=== PATIENT | female | born 1940 | race Caucasian/White ===

== ENCOUNTER 2020-12-03 10:12 | Outpatient (CLI) | payer MEDICARE, SELFPAY | END 2020-12-03 10:13 | disposition home or self-care (01) | LOC: ANHCOVIDVC 10:12 | PROVIDERS: PCP Family Medicine | DX: Z23 Encounter for immunization (principal) | CPT/HCPCS: 0001A; 91300 ==

== ENCOUNTER 2020-12-24 10:12 | Outpatient (CLI) | payer MEDICARE, SELFPAY | END 2020-12-24 10:13 | disposition home or self-care (01) | LOC: ANHCOVIDVC 10:12 | PROVIDERS: PCP Family Medicine | DX: Z23 Encounter for immunization (principal) | CPT/HCPCS: 0002A; 91300 ==

== ENCOUNTER 2021-05-10 07:58 | Emergency (ER) | payer MEDICARE, SELFPAY ==
--- NOTE | ~2021-05-10 | XR_ITS ---
EXAMINATION: XR hip RT min 2V DATE: 05/10/2021 09:19 INDICATION: Right hip pain. TECHNIQUE: 2 views of right hip were obtained. COMPARISON: Pelvis radiograph 05/21/2006 FINDINGS: Bone alignment is normal. No fracture. Right hip joint space is normal. There is moderate l umbar spondylosis. IMPRESSION: 1. Normal right hip. Reviewed, dictated and finalized at location A. IMPRESSION: 1. Normal right hip.
--- NOTE | ~2021-05-10 | XR_ITS ---
EXAMINATION: XR hip LT 2V w AP pelvis INDICATION: Left hip pain TECHNIQUE: AP view the pelvis and two views of the left hip are obtained. COMPARISON: 05/22/2006 FINDINGS: Bone alignment is normal. There is no fracture. Phleboliths are noted in the pelvis. There is osteitis pubis. Lumbar spondylosis is noted. IMPRESSION: 1. No acute osseous abnormality. Reviewed, dictated and finalized at location B.
[2021-05-10 08:35] VITALS: BP 159/84; PULSE 66; RESP 16; TEMP 36.6; O2SAT 100
[2021-05-10 09:05] VITALS: BP 124/107; PULSE 72; RESP 18; O2SAT 100
--- NOTE | 2021-05-10 09:44 | ED.LOWEXIN ---
HPI - Extremity Injury (Lower) General Chief Complaint: Extremity Injury, Lower Stated Complaint: yellowjacket sting Time Seen by Provider: 05/10/21 09:17 History of Present Illness HPI Narrative: Pain purchased on by a low jacket a few days ago. Pain is been getting progressively worse. She reports she is allergic to yellow jackets of managing her symptoms with Benadryl. She attempted ibuprofen alleviate her pain but has been unsuccessful. She tried to see her primary care doctor yesterday but the clinic was full. Since her pain continues to worsen she came to the ER for evaluation. Pain is constant, sharp, worse with trying to ambulate radiates up and down her leg is predominant in her right hip where she was stung. She denies any fevers, nausea, vomiting, diarrhea, shortness of breath. Reports she initially had swelling but does not appreciate swelling at this time she not noted any significant erythema. Related Data Allergies Allergy/AdvReac Type Severity Reaction Status Date / Time ciprofloxacin Allergy Unknown Unknown Verified 05/10/21 09:05 Sulfa (Sulfonamide Allergy Unknown Unknown Verified 05/10/21 09:05 Antibiotics) Review of Systems Review of Systems: CONSTITUTIONAL: Denies fever, chills, or sweats. EYES: Denies visual changes, redness, or discharge. ENT: Denies rhinorrhea, congestion, sore throat, or otalgia. CARDIOVASCULAR: Denies chest pain, palpitations, or edema. RESPIRATORY: Denies cough or dyspnea. GASTROINTESTINAL: Denies abdominal pain, nausea, vomiting, or diarrhea. GENITOURINARY: Denies dysuria or hematuria. SKIN: Denies rash or itching. MUSCULOSKELETAL: Denies back pain, joint pain, or myalgia. NEUROLOGIC: Denies headache, numbness, dizziness, or weakness. PSYCHIATRIC: Denies anxiety or depression. All systems reviewed & are unremarkable except as noted in HPI and below PMFSH Past Medical History Medical History Chronic low back pain HTN (hypertension) IFG (impaired fasting glucose) Vitamin D deficiency Social History Social History (Updated 01/07/21 @ 10:06 by Blaire Blackburn) Smoking status: Never smoker Alcohol intake: never Substance use: never Gender identity (if verbalized by the patient): Female Exam Narrative: GENERAL: Well-appearing, well-nourished, and in no acute distress. HEAD: Normocephalic, atraumatic. EYES: PERRLA and EOMI. ENT: Nares clear, no rhinorrhea or epistaxis. Mucous membranes moist. NECK: Supple. No masses. No JVD CHEST: Clear to auscultation. No respiratory distress. No wheezes rales or rhonchi HEART: Regular rate and rhythm. No murmur heard. Normal peripheral pulses. ABDOMEN: Soft, nontender, nondistended, normal active bowel sounds. EXTREMITIES: Normal range of motion. No edema. SKIN: Warm, dry. 2 x 2 centimeter area of ecchymosis with small central erythema. Pain with palpation of the hip no appreciable edema or focal areas of fluctuance no open or draining wounds NEURO: No focal deficits. Alert and oriented x3. PSYCH: Normal mood and affect. Course Reevaluation(s) Reevaluation #1: Patient continues report right hip pain. Labs and imaging reviewed with patient recommended a trial of outpatient gabapentin and time symptoms are likely related to recent stenting. Patient reported she was unhappy and would like her problem fixed today. Date: 05/10/21 Time: 10:57 Vital Signs Vital signs: Vital Signs Temperature 36.6 C 05/10/21 08:35 Pulse Rate 66 05/10/21 08:35 Respiratory Rate 16 05/10/21 08:35 Blood Pressure 159/84 H 05/10/21 08:35 Pulse Oximetry 100 05/10/21 08:35 Temperature 36.6 C 05/10/21 08:35 Pulse Rate 75 05/10/21 11:58 Respiratory Rate 12 05/10/21 11:58 Blood Pressure 124/107 H 05/10/21 09:05 Pulse Oximetry 95 05/10/21 11:58 MDM - Extremity Injury (Lower) MDM Narrative Medical decision making narrative: H&P as above, vss, pt looks c
[2021-05-10] MEDS: KETOROLAC 15 MG/ML VIAL (*BKC) IV PUSH (09:57)
[2021-05-10 10:11] LABS: Basophils Percent Auto 0.5 % (0.2-1.2); Eosinophils Absolute Auto 0.2 K/mm3 (0-0.3); Eosinophils Percent Auto 1.7 % (0-4.4); Hematocrit 39.5 % (37.0-47.0); Hemoglobin 12.6 g/dL (12.0-15.0); Immature Granulocyte Absolute 0.03 K/mm3 (0.00-0.031); Immature Granulocyte Percent A 0.3 % (0-0.5); Lymphocytes Absolute Auto 1.46 K/mm3 (0.9-3.2); Lymphocytes Percent Auto 16.9 % (18.3-44.2); Mean Corpuscular HGB Conc 31.9 g/dl (32-36); Mean Corpuscular Hemoglobin 28.7 pg (26-34); Mean Platelet Volume 9.3 fl (7.4-10.4); Monocytes Absolute Auto 0.6 K/mm3 (0.1-0.6); Monocytes Percent Auto 7.3 % (2.6-8.5); Neutrophils Absolute Auto 6.3 K/mm3 (1.3-6.7); Neutrophils Percent Auto 73.3 % (45.5-73.1); Platelet Count Result 228 k/mm3 (150-375); Red Blood Count 4.39 M/mm3 (4.2-5.4); Red Cell Distribution Width 13.5 % (11.5-14.5); White Blood Count 8.6 K/mm3 (4.5-10.0)
[2021-05-10 10:27] LABS: Alanine Aminotransferase 12 U/L (4-35); Albumin Level 4.3 g/dL (3.5-5.1); Alkaline Phosphatase 71 U/L (38-126); Anion Gap 7 mmol/L (8-16); Aspartate Amino Transferase 22 U/L (14-36); Bilirubin,Total 0.7 mg/dL (0.2-1.3); Blood Urea Nitrogen 17 mg/dL (7-17); CRP 0.6 mg/dL (<1.0); Calcium 9.4 mg/dL (8.4-10.2); Carbon Dioxide 27 mmol/L (22-30); Chloride 106 mmol/L (98-107); Estimated CRCL calculation 38 ml/min; Estimated Glomerular Filt Rate 60; Glucose 101 mg/dL (65-110); Potassium 3.9 mmol/L (3.4-5.0); Sodium 140 mmol/L (137-145)
[2021-05-10 10:36] LABS: Erythrocyte Sedimentation Rate 21 mm/hr (0-20)
[2021-05-10 11:58] VITALS: PULSE 75; RESP 12; O2SAT 95
--- NOTE | 2021-05-10 13:20 | PC.NURSE ---
pt. returned, IV removed and dressing applied.
== END 2021-05-10 11:55 | disposition home or self-care (01) ==
PROVIDERS: Emergency Provider Emergency Medicine; PCP Family Medicine
DX: T63.461A Toxic effect of venom of wasps, accidental (unintentional), initial encounter (principal); M25.551 Pain in right hip; I10 Essential (primary) hypertension
CPT/HCPCS: 36415; 73502; 80053; 85025; 85652; 86140; 96374; 99284; J1885

== ENCOUNTER 2021-05-12 08:25 | Inpatient (IN) | payer MEDICARE, SELFPAY ==
[2021-05-12] VITALS (9 sets, daily range): BP systolic 169–195; BP diastolic 66–90; PULSE 62–73; RESP 18–22; TEMP 36.9–37.1; O2SAT 95–100
--- NOTE | ~2021-05-12 | CT_ITS ---
EXAMINATION: CT abdomen pelvis wo con DATE: 05/12/2021 10:41 INDICATION: Back pain and right-sided leg pain TECHNIQUE: Computed tomography (CT) of the abdomen and pelvis was performed without intravenous contr ast. The dose-length product (DLP) was 183.22 mGy-cm. Automated exposure control and iterative recons truction technique were employed. COMPARISON: 05/21/2006 FINDINGS: Minimal dependent atelectasis is present in the visualized lung bases. Cardiomegaly is note d. The liver, spleen, gallbladder, and adrenal glands are normal. There is a chronic and unchanged ar ea of low attenuation in the head of the pancreas, likely fatty infiltration given the interval stabi lity. The kidneys are unremarkable. No stones are identified in the kidneys, ureters, or bladder. The re is no hydronephrosis or hydroureter. There is calcified atherosclerosis of the aorta and many of t he other arteries. No pathologically enlarged abdominal or pelvic lymph nodes are identified. There i s no free intraperitoneal gas or evidence of bowel obstruction. There is severe lumbar spondylosis at L1-2 and mild to moderate spondylosis throughout the remainder of the lumbar spine. There is vertebr oplasty change in a T12 compression fracture. IMPRESSION: 1. No CT correlate for the patient's symptoms. Reviewed, dictated and finalized at location B.
--- NOTE | ~2021-05-12 | CT_ITS ---
EXAMINATION: CT lumbar spine wo con DATE: 05/13/2021 09:41 INDICATION: Back pain. TECHNIQUE: Computed tomography (CT) of the lumbar spine was performed without intravenous contrast. A utomated exposure control and iterative reconstruction technique were employed. The dose-length produ ct was 247.70 mGy-cm. COMPARISON: Lumbar spine MRI 02/15/2018 FINDINGS: There is 3 mm anterolisthesis of L4 on L5. There is 5 degrees levocurvature of lumbar spine . There is a chronic compression fracture of T11 with 1/5 loss of height and changes of vertebroplast y. There is severely decreased disc height at L1-L2, moderately decreased disc height at L2-L3, and m ildly decreased disc height at L3-L4 and L4-L5. The following disc levels are specifically discussed: L1-L2: The disc is bulging. There is moderate bilateral facet joint osteoarthritis. There is mild terrell ateral neural foraminal stenosis. There is mild central canal stenosis. L2-L3: The disc is bulging. There is severe right and mild left facet joint osteoarthritis. There is mild bilateral neural foraminal stenosis. There is mild central canal stenosis. L3-L4: The disc is bulging. There is severe bilateral facet joint osteoarthritis. There is mild bilat eral neural foraminal stenosis. There is mild central canal stenosis. L4-L5: The disc is bulging. There is severe bilateral facet joint osteoarthritis. There is mild bilat eral neural foraminal stenosis. There is mild central canal stenosis. L5-S1: The disc is bulging. There is severe bilateral facet joint osteoarthritis. There is mild bilat eral neural foraminal stenosis. There is mild central canal stenosis. IMPRESSION: 1. Severe lumbar spondylosis, stable from 02/15/2018. Reviewed, dictated and finalized at location A.
--- NOTE | ~2021-05-12 | MR_ITS ---
EXAMINATION: MR lumbar spine wo con DATE: 05/16/2021 08:16 INDICATION: Lumbar disc herniation. Back pain. TECHNIQUE: Magnetic resonance imaging (MRI) of the lumbar spine was performed without intravenous con trast. Sequences included sagittal T2-weighted FSE, sagittal T2-weighted FS FSE, sagittal T1-weighted FSE, and axial T2-weighted FSE. COMPARISON: CT lumbar spine 05/13/2021, lumbar spine MRI 02/15/2018 FINDINGS: There is 3 mm anterolisthesis of L4 on L5. There is a chronic compression fracture of T11 w ith 2/5 loss of height centrally. There is a chronic compression fracture of T12 with 1/5 loss of hei ght and changes of vertebroplasty. There is severely decreased disc height at T10-T11 and L1-L2, mode rately decreased disc height at L2-L3 and L3-L4, and mildly decreased disc height at L4-L5 and L5-S1. The distal spinal cord signal intensity is normal. The conus medullaris is at L2. The following disc levels are specifically discussed: L1-L2: The disc is bulging with superimposed left central extrusion. There is moderate bilateral face t joint osteoarthritis. There is mild right and moderate left neural foraminal stenosis. There is mil d central canal stenosis. L2-L3: The disc is bulging and has an annular fissure. There is severe right and moderate left facet joint osteoarthritis. There is mild bilateral neural foraminal stenosis. There is mild central canal stenosis. L3-L4: The disc is bulging and has an annular fissure. There is severe bilateral facet joint osteoart hritis. There is mild bilateral neural foraminal stenosis. There is mild central canal stenosis. L4-L5: The disc is bulging. There is severe bilateral facet joint osteoarthritis. There is mild bilat eral neural foraminal stenosis. There is mild central canal stenosis. L5-S1: The disc is bulging. There is severe bilateral facet joint osteoarthritis. There is mild bilat eral neural foraminal stenosis. There is mild central canal stenosis. IMPRESSION: 1. Severe lumbar spondylosis, stable from 02/15/2018. Reviewed, dictated and finalized at location B.
--- NOTE | ~2021-05-12 | CT_ITS ---
EXAMINATION: CT hip RT wo con DATE: 05/13/2021 09:41 INDICATION: Right hip pain. TECHNIQUE: Computed tomography (CT) of the right hip was performed without intravenous contrast. Auto mated exposure control and iterative reconstruction technique were employed. The dose-length product was 145.28 mGy-cm. COMPARISON: Pelvis and hip radiographs 05/10/2021 FINDINGS: Bone alignment is normal. No fracture. There is mild right hip osteoarthritis. The musculat ure is unremarkable. IMPRESSION: 1. Mild right hip osteoarthritis. Reviewed, dictated and finalized at location A.
--- NOTE | 2021-05-12 09:48 | ED.GENADULT ---
HPI - General Adult General Chief complaint: Back Pain/Injury Stated complaint: lewg pain Time Seen by Provider: 05/12/21 09:20 Source: patient and family Mode of arrival: EMS Limitations: no limitations History of Present Illness HPI narrative: Patient is here for evaluation of back pain and incontinence. She was seen here earlier this week for a bee sting which she said she was allergic to, it occurred in her right thigh. She was treated at that time with gabapentin and prednisone. She states that the medications did nothing for her pain and in fact she has gotten worse. She is now states that she has pain from her back down her right thigh and is incontinent of urine. She denies any fever or pain with urination. She is stooling well. She states the pain gets worse as she gets worked up she cannot walk. Related Data Allergies Allergy/AdvReac Type Severity Reaction Status Date / Time ciprofloxacin Allergy Unknown Unknown Verified 05/12/21 08:32 Sulfa (Sulfonamide Allergy Unknown Unknown Verified 05/12/21 08:32 Antibiotics) Review of Systems Review of Systems: All systems reviewed & are unremarkable except as noted in HPI and below [facility] Past Medical History Medical History Chronic low back pain HTN (hypertension) IFG (impaired fasting glucose) Vitamin D deficiency Social History Social History Smoking status: Never smoker Alcohol intake: never Substance use: never Gender identity (if verbalized by the patient): Female Exam Const: General: healthy appearing and alert Orientation/consciousness: patient oriented x3 HENMT: Head: normal to inspection Eyes: Conjunctivae: conjunctivae normal Pupils: Equal, round and reactive pupils present Resp: Effort & Inspection: normal respiratory effort Auscultation: clear to auscultation bilaterally Cardio: Rate: regular rate Rhythm: regular rhythm GI: GI Palp: Yes Soft to palpation Back/Spine/Pelvis: Thoracic/Lumbar Spine: straight leg raise positive (with active motion, painfree with passive) Other: Pt won't stand or sit up due to pain. Skin: General skin exam: normal color Wounds: no wounds Other: no toya or lump at site of bee sting. Neuro: General: patient oriented x3 Extrem: General: normal to inspection Right lower extremity: normal to inspection, full ROM (with passive movement. ), normal capillary refill and no joint enlargement Psych: Appearance: grossly normal Affect: Anxious affect present Course Course Emergency Course: Patient is repeatedly declined my plan of care for increasing her pain medication, adding muscle relaxant and following up with her primary care physician for physical therapy. She continues to complain of her inability to stand due to pain despite Toradol, and then morphine. Although she stated that the morphine is helping her pain. Throughout the stay I have asked the patient to try to stand, she refuses but she is laying in bed with both legs bent. She now tells me that yesterday she went to the swimming pool to see if that would make her back feel better followed by the chiropractor who also told her she had sciatica. I have explained to her again that she will be discharged home, we can increase her medication regimen until she can see her physician. She declines to leave she wants to be admitted. I spoke to Dr. Saravia who agrees with my plan and states that the patient does not meet criteria for admission. Vital Signs Vital signs: Vital Signs Temperature 37.1 C 05/12/21 08:23 Pulse Rate 66 05/12/21 08:23 Respiratory Rate 18 05/12/21 08:23 Blood Pressure 195/75 H 05/12/21 08:23 Pulse Oximetry 95 05/12/21 08:23 Temperature 37.1 C 05/12/21 08:23 Pulse Rate 62 05/12/21 16:10 Respiratory Rate 18 05/12/21 16:10 Blood Pressure 175/73 H 05/12/21 16:10 Pulse Oximetry 98
[2021-05-12] MEDS: KETOROLAC 30 MG/ML VIAL (*BKC) IV PUSH ×2 (10:14→18:36)
[2021-05-12 10:29] LABS: Add Urine Microscopic? NO; Appearance Urine Clear (Clear); Bilirubin Urine Negative (Negative); Blood Urine Negative (Negative); Color Urine Colorless (Yellow); Glucose Urine UA Negative (Negative); Ketones Urine Negative (Negative); Leukocyte Esterase Ur Negative LEU/UL (Negative); Nitrate Urine Negative (Negative); Protein Urine Negative (Negative); Specific Grav Ur 1.005 (1.001-1.035); Urobilinogen Urine Negative mg/dL (<2.0)
[2021-05-12 11:02] LABS: Anion Gap 9 mmol/L (8-16); Basophils Absolute Auto 0.1 K/mm3 (0.0-0.1); Basophils Percent Auto 0.5 % (0.2-1.2); Blood Urea Nitrogen 17 mg/dL (7-17); Calcium 9.2 mg/dL (8.4-10.2); Carbon Dioxide 27 mmol/L (22-30); Chloride 102 mmol/L (98-107); Eosinophils Absolute Auto 0.1 K/mm3 (0-0.3); Eosinophils Percent Auto 0.9 % (0-4.4); Estimated CRCL calculation 42 ml/min; Estimated Glomerular Filt Rate > 60; Glucose 100 mg/dL (65-110); Hematocrit 42.2 % (37.0-47.0); Hemoglobin 13.4 g/dL (12.0-15.0); Immature Granulocyte Absolute 0.04 K/mm3 (0.00-0.031); Immature Granulocyte Percent A 0.4 % (0-0.5); Lymphocytes Absolute Auto 2.57 K/mm3 (0.9-3.2); Lymphocytes Percent Auto 24.4 % (18.3-44.2); Mean Corpuscular HGB Conc 31.8 g/dl (32-36); Mean Corpuscular Hemoglobin 28.9 pg (26-34); Mean Corpuscular Volume 91.1 fl (80-100); Mean Platelet Volume 9.3 fl (7.4-10.4); Monocytes Absolute Auto 1.1 K/mm3 (0.1-0.6); Monocytes Percent Auto 10.1 % (2.6-8.5); Neutrophils Absolute Auto 6.7 K/mm3 (1.3-6.7); Neutrophils Percent Auto 63.7 % (45.5-73.1); Platelet Count Result 242 k/mm3 (150-375); Potassium 3.7 mmol/L (3.4-5.0); Red Blood Count 4.63 M/mm3 (4.2-5.4); Red Cell Distribution Width 13.7 % (11.5-14.5); Sodium 138 mmol/L (137-145); White Blood Count 10.5 K/mm3 (4.5-10.0)
[2021-05-12] MEDS: MORPHINE SULFATE (*CRX) 2 MG/ML INJ IV PUSH ×2 (12:41→16:10)
--- NOTE | 2021-05-12 15:34 | PC.NURSE ---
aTTEMPTED TO WALK PATIENT AT 1510. SHE CANNOT GET OUT OF BED. I CHANGED WET LINEN AND LET MERVAT KNOW.
[2021-05-12] MEDS: LIDOCAINE 5% PATCH 1 PATCH TOPICAL (16:49)
--- NOTE | 2021-05-12 22:58 | ADMGEN ---
This patient, Becka Mckinney, was admitted to [facility] Surg Room 324-02. Patient/family oriented to hospital policies and general routines including ID bracelet, bed and alarms, visiting hours, pain management, procedures, bathroom and other care routines, personal items, smoking policy, room service/diet, and visiting hours. Information on how to activate the Rapid Response Team has been discussed. Patient/Family are encouraged to report perceived risks to care and to ask questions if they do not understand what they are told or what they should do.
--- NOTE | 2021-05-12 23:39 | PM.IMHP ---
H&P: HPI History of Present Illness Date/Time: 05/12/21 23:39 Chief Complaint: Back pain and right hip pain Narrative: Patient is here for evaluation of back pain which has gotten worse since last evening. She reports the pain is more on the right side of the back along with her right hip. She was here in the ER on 05/10 after she was stung by a yellow jacket in her right thigh. She reports that the pain is different from the pain that she is having currently. She was sent home on gabapentin and prednisone. She reports the thigh pain where she was stung is getting better and has a lidocaine patch on she states she is not able to ambulate because of her back pain that radiates down to her thigh up to the knee. She denies any urinary complaints and no stool incontinence. She was attempted to be ambulated in the ER but was unable to do so or refused to do so because of uncontrolled pain and hence he is getting admitted for intractable pain. She denies any fever or chills no shortness of breath or chest pain Review of Systems Review of Systems: - CONSTITUTIONAL: Denies weight loss, fever and chills. - HEENT: Denies changes in vision and hearing - RESPIRATORY: Denies SOB and cough. - CV: Denies palpitations and CP. - GI: Denies abdominal pain, nausea, vomiting and diarrhea. - : Denies dysuria and urinary frequency. - MSK: Denies myalgia and joint pain. Reports right hip pain and back pain - SKIN: Denies rash and pruritus. - NEUROLOGICAL: Denies headache and syncope. - PSYCHIATRIC: Denies recent changes in mood. Denies anxiety and depression. All systems reviewed & are unremarkable except as noted in HPI and below Constitutional: Constitutional: Reports fatigue and Reports weakness Neurologic: Reports weakness Endocrine: Endocrine: Reports fatigue PMFSH Past Medical History Medical History Chronic low back pain HTN (hypertension) IFG (impaired fasting glucose) Vitamin D deficiency Social History Social History Smoking status: Never smoker Alcohol intake: never Substance use: never Gender identity (if verbalized by the patient): Female Spiritual care concerns: No Meds Home Medications and Allergies Home Medications Medication Instructions Recorded Confirmed Type amlodipine 5 mg tablet 5 mg PO DAILY #90 tablet 01/03/21 05/12/21 Rx Allergies Allergy/AdvReac Type Severity Reaction Status Date / Time ciprofloxacin Allergy Unknown Unknown Verified 05/12/21 08:32 Sulfa (Sulfonamide Allergy Unknown Unknown Verified 05/12/21 08:32 Antibiotics) Vital Signs Vital Signs - 24 hr 05/12/21 08:23 05/12/21 09:19 05/12/21 12:42 Temperature 98.7 F Pulse Rate 66 73 64 Respiratory Rate 18 18 20 Blood Pressure 195/75 H 189/66 H 181/77 H Pulse Oximetry 95 100 100 05/12/21 16:10 05/12/21 18:36 05/12/21 20:11 Temperature Pulse Rate 62 67 62 Respiratory Rate 18 18 18 Blood Pressure 175/73 H 169/71 H 182/90 H Pulse Oximetry 98 97 98 05/12/21 22:07 Temperature Pulse Rate 69 Respiratory Rate 22 H Blood Pressure 174/86 H Pulse Oximetry 98 Exam Narrative: GENERAL: The patient is well developed, in mild distress from pain HEENT: Nonicteric sclerae, PERRLA, EOMI. Oropharynx clear. Moist mucous membranes. Conjunctivae appear well perfused. CHEST: Chest wall is nontender. HEART: Regular rate and rhythm without murmur, rubs, or gallops LUNGS: Clear to auscultation bilaterally. no respiratory distress ABDOMEN: Soft, positive bowel sounds, non-tender, no organomegaly. SKIN: No rash, no excessive bruising, petechiae, or purpura. NEUROLOGIC: Cranial nerves II-XII intact, alert and oriented x 3, no gross motor deficits EXTREMITIES: no edema, cyanosis or clubbing Back with tender paraspinal lumbar area negative straight leg raise test non restricted range of motion on hip b
[2021-05-13 01:30] VITALS: BMI 20.6
[2021-05-13] MEDS: HYDROcodone/acetaminophen (*CRX) 5-325 MG TABLET 1 TAB PO ×2 (01:35→08:27)
[2021-05-13 05:39] VITALS: BP 136/65; PULSE 66; RESP 18; TEMP 37.1; O2SAT 96
[2021-05-13 06:32] LABS: Basophils Absolute Auto 0.1 K/mm3 (0.0-0.1); Basophils Percent Auto 0.8 % (0.2-1.2); Eosinophils Absolute Auto 0.2 K/mm3 (0-0.3); Eosinophils Percent Auto 3.1 % (0-4.4); Hematocrit 41.1 % (37.0-47.0); Hemoglobin 13.1 g/dL (12.0-15.0); Immature Granulocyte Absolute 0.02 K/mm3 (0.00-0.031); Immature Granulocyte Percent A 0.3 % (0-0.5); Lymphocytes Absolute Auto 1.91 K/mm3 (0.9-3.2); Mean Corpuscular HGB Conc 31.9 g/dl (32-36); Mean Corpuscular Hemoglobin 28.9 pg (26-34); Mean Corpuscular Volume 90.7 fl (80-100); Mean Platelet Volume 9.5 fl (7.4-10.4); Monocytes Absolute Auto 0.9 K/mm3 (0.1-0.6); Monocytes Percent Auto 12.2 % (2.6-8.5); Neutrophils Absolute Auto 4.5 K/mm3 (1.3-6.7); Neutrophils Percent Auto 58.6 % (45.5-73.1); Platelet Count Result 251 k/mm3 (150-375); Red Blood Count 4.53 M/mm3 (4.2-5.4); Red Cell Distribution Width 13.6 % (11.5-14.5); White Blood Count 7.6 K/mm3 (4.5-10.0)
[2021-05-13 06:49] LABS: Anion Gap 10 mmol/L (8-16); Blood Urea Nitrogen 26 mg/dL (7-17); Calcium 8.9 mg/dL (8.4-10.2); Carbon Dioxide 26 mmol/L (22-30); Chloride 98 mmol/L (98-107); Estimated CRCL calculation 43 ml/min; Estimated Glomerular Filt Rate > 60; Glucose 95 mg/dL (65-110); Potassium 3.8 mmol/L (3.4-5.0); Sodium 134 mmol/L (137-145)
[2021-05-13 08:00] VITALS: O2SAT 96
[2021-05-13] MEDS: methylPREDNISolone SOD SUCC 40 MG VIAL IV PUSH ×2 (08:49→18:51)
[2021-05-13] MEDS: methocarbamoL 750 MG TABLET PO ×4 (08:49→22:38)
[2021-05-13] MEDS: amLODIPine BESYLATE 5 MG TABLET PO (08:49)
[2021-05-13] MEDS: MORPHINE SULFATE (*CRX) 2 MG/ML INJ IV PUSH (11:58)
[2021-05-13 14:00] VITALS: BP 150/96; PULSE 72; RESP 14; TEMP 36.3; O2SAT 95
--- NOTE | 2021-05-13 18:44 | PM.IMPN ---
Progress Note: A&P Assessment and Plan (1) Sciatica of right side: Code(s): M54.31 - Sciatica, right side Status: Acute (2) Chronic low back pain: Qualifiers: Back pain laterality: unspecified Sciatica laterality: sciatica of right side Sciatica presence: with sciatica Qualified Code(s): M54.41 - Lumbago with sciatica, right side; G89.29 - Other chronic pain Code(s): M54.5 - Low back pain; G89.29 - Other chronic pain Status: Acute (3) Stress and adjustment reaction: Code(s): F43.29 - Adjustment disorder with other symptoms Status: Acute (4) HTN (hypertension): Qualifiers: Hypertension type: unspecified Qualified Code(s): I10 - Essential (primary) hypertension Code(s): I10 - Essential (primary) hypertension Status: Acute (5) Leukocytosis: Qualifiers: Leukocytosis type: unspecified Qualified Code(s): D72.829 - Elevated white blood cell count, unspecified Code(s): D72.829 - Elevated white blood cell count, unspecified Status: Acute (6) Yellow jacket sting: Qualifiers: Encounter type: sequela Injury intent: accidental or unintentional Qualified Code(s): T63.461S - Toxic effect of venom of wasps, accidental (unintentional), sequela Code(s): T63.461A - Toxic effect of venom of wasps, accidental (unintentional), initial encounter Status: Resolved Additional Plan Intractable back pain: Patient on the following pain regimen: Gabapentin 100 p.o. t.i.d. [place] q.4 hours p.r.n. Norcol q.6 hours p.r.n. Robaxin 750 q.i.d. Was also receiving IV morphine 2 mg Q 4 p.r.n. which has now been discontinued Patient has also been started on Solu-Medrol 40 mg b.i.d; this will be increased to t.i.d. and the patient should be discharged on tapering dose of steroids when ready Leukocytosis: Most likely reactive and this has not resolved Subjective Date/time seen: 05/13/21 18:44 80-year-old female with past medical history significant for hypertension had previously presented to the ED on 05/10 after having sustained a yellow jacket sting in the right thigh presents again with complaints of right hip pain. She is being managed as a case of intractable pain and continues to experience the same. Patient had extensive workup including hip CT CT of the abdomen pelvis and lumbar spinal CT and extensive exam also did not show any findings concerning for sciatica or any late sequelae of the sting bite. Patient is continuing to receive IV steroids and should be transitioned on p.o. steroids tapering dose at the time of discharge. Gabapentin is being prescribed in addition to Robaxin. She is also getting [place] q.4 hours p.r.n. for pain. There are concerns that this could also be related to her anxiety and history is being provided Xanax for calming her down. Should she continue to experience pain, she she need some reinforcement and explanation with regards to her given symptoms. Review of Systems Review of Systems: A 10 point review of system was conducted which was otherwise negative Exam Narrative: GENERAL: The patient is well developed, appears to be in significant distress and tearful from pain HEENT: Nonicteric sclerae, PERRLA, EOMI. Oropharynx clear. Moist mucous membranes. Conjunctivae appear well perfused. CHEST: Chest wall is nontender. HEART: Regular rate and rhythm without murmur, rubs, or gallops LUNGS: Clear to auscultation bilaterally. no respiratory distress ABDOMEN: Soft, positive bowel sounds, non-tender, no organomegaly. SKIN: No rash, no excessive bruising, petechiae, or purpura. NEUROLOGIC: Cranial nerves II-XII intact, alert and oriented x 3, no gross motor deficits EXTREMITIES: Back with tender paraspinal lumbar area negative straight leg raise test non restricted range of motion on hip bilateral reflexes normal and symmetrical Objective Data Vital Signs Vital Signs: Vital Signs - 24 hr 05/12/21 2
[2021-05-13 22:00] VITALS: BP 178/74; PULSE 78; RESP 18; TEMP 36.2; O2SAT 96
[2021-05-13] MEDS: GABAPENTIN 100 MG CAPSULE PO (22:38)
[2021-05-13] MEDS: ALPRAZolam (*CRX) 0.5 MG TABLET PO (22:39)
[2021-05-14 05:56] VITALS: BP 140/57; PULSE 77; RESP 18; TEMP 36.1; O2SAT 97
[2021-05-14 07:41] LABS: Basophils Percent Auto 0.1 % (0.2-1.2); Hematocrit 39.4 % (37.0-47.0); Hemoglobin 13.1 g/dL (12.0-15.0); Immature Granulocyte Absolute 0.07 K/mm3 (0.00-0.031); Immature Granulocyte Percent A 0.7 % (0-0.5); Lymphocytes Absolute Auto 1.36 K/mm3 (0.9-3.2); Mean Corpuscular HGB Conc 33.2 g/dl (32-36); Mean Corpuscular Hemoglobin 28.7 pg (26-34); Mean Corpuscular Volume 86.4 fl (80-100); Mean Platelet Volume 9.4 fl (7.4-10.4); Monocytes Absolute Auto 0.8 K/mm3 (0.1-0.6); Neutrophils Absolute Auto 8.2 K/mm3 (1.3-6.7); Neutrophils Percent Auto 78.2 % (45.5-73.1); Platelet Count Result 292 k/mm3 (150-375); Red Blood Count 4.56 M/mm3 (4.2-5.4); White Blood Count 10.4 K/mm3 (4.5-10.0)
[2021-05-14] MEDS: ALPRAZolam (*CRX) 0.5 MG TABLET PO ×3 (08:44→20:54)
[2021-05-14] MEDS: amLODIPine BESYLATE 5 MG TABLET PO (08:44)
[2021-05-14] MEDS: GABAPENTIN 100 MG CAPSULE PO ×3 (08:44→17:14)
[2021-05-14] MEDS: methylPREDNISolone SOD SUCC 40 MG VIAL IV PUSH ×3 (08:45→17:14)
[2021-05-14] MEDS: methocarbamoL 750 MG TABLET PO ×4 (08:45→20:54)
[2021-05-14 09:20] LABS: Alanine Aminotransferase 13 U/L (4-35); Albumin Level 4.1 g/dL (3.5-5.1); Alkaline Phosphatase 58 U/L (38-126); Anion Gap 8 mmol/L (8-16); Aspartate Amino Transferase 18 U/L (14-36); Bilirubin,Total 0.6 mg/dL (0.2-1.3); Blood Urea Nitrogen 29 mg/dL (7-17); Calcium 9.4 mg/dL (8.4-10.2); Carbon Dioxide 25 mmol/L (22-30); Chloride 103 mmol/L (98-107); Creatine Kinase 34 U/L (30-135); Estimated CRCL calculation 43 ml/min; Estimated Glomerular Filt Rate > 60; Glucose 140 mg/dL (65-110); Potassium 4.6 mmol/L (3.4-5.0); Sodium 136 mmol/L (137-145)
[2021-05-14 14:00] VITALS: BP 130/61; PULSE 79; RESP 18; TEMP 36.3; O2SAT 99
--- NOTE | 2021-05-14 18:55 | PM.IMPN ---
Progress Note: A&P Assessment and Plan (1) Sciatica of right side: Code(s): M54.31 - Sciatica, right side Status: Acute (2) Chronic low back pain: Qualifiers: Back pain laterality: unspecified Sciatica laterality: sciatica of right side Sciatica presence: with sciatica Qualified Code(s): M54.41 - Lumbago with sciatica, right side; G89.29 - Other chronic pain Code(s): M54.5 - Low back pain; G89.29 - Other chronic pain Status: Acute (3) Stress and adjustment reaction: Code(s): F43.29 - Adjustment disorder with other symptoms Status: Acute (4) HTN (hypertension): Qualifiers: Hypertension type: unspecified Qualified Code(s): I10 - Essential (primary) hypertension Code(s): I10 - Essential (primary) hypertension Status: Acute (5) Leukocytosis: Qualifiers: Leukocytosis type: unspecified Qualified Code(s): D72.829 - Elevated white blood cell count, unspecified Code(s): D72.829 - Elevated white blood cell count, unspecified Status: Acute (6) Yellow jacket sting: Qualifiers: Encounter type: sequela Injury intent: accidental or unintentional Qualified Code(s): T63.461S - Toxic effect of venom of wasps, accidental (unintentional), sequela Code(s): T63.461A - Toxic effect of venom of wasps, accidental (unintentional), initial encounter Status: Resolved Additional Plan Intractable back pain: Patient on the following pain regimen: Gabapentin 100 p.o. t.i.d. [place] q.4 hours p.r.n. Norcol q.6 hours p.r.n. Robaxin 750 q.i.d. Was also receiving IV morphine 2 mg Q 4 p.r.n. which has now been discontinued Patient has also been started on Solu-Medrol 40 mg b.i.d; this will be increased to t.i.d. and the patient should be discharged on tapering dose of steroids when ready Continue physical therapy No red flag signs, including bowel or bladder symptoms, saddle anesthesia oral lower extremity weakness Symptoms likely related to sciatica, or strain If not improving with steroids, can continue physical therapy and rehab, and may warrant investigation for nerve block with pain management or neurosurgery Subjective Date/time seen: 05/14/21 18:55 Interval history: Patient still complaining of back pain, however improving since yesterday. Review of Systems Review of Systems: All systems reviewed & are unremarkable except as noted in HPI and below Constitutional: Constitutional: Reports fatigue and Reports weakness Neurologic: Reports weakness Endocrine: Endocrine: Reports fatigue Exam Narrative: GENERAL: The patient is well developed, appears to be in significant distress and tearful from pain HEENT: Nonicteric sclerae, PERRLA, EOMI. Oropharynx clear. Moist mucous membranes. Conjunctivae appear well perfused. CHEST: Chest wall is nontender. HEART: Regular rate and rhythm without murmur, rubs, or gallops LUNGS: Clear to auscultation bilaterally. no respiratory distress ABDOMEN: Soft, positive bowel sounds, non-tender, no organomegaly. SKIN: No rash, no excessive bruising, petechiae, or purpura. NEUROLOGIC: Cranial nerves II-XII intact, alert and oriented x 3, no gross motor deficits EXTREMITIES: Back with tender paraspinal lumbar area negative straight leg raise test non restricted range of motion on hip bilateral reflexes normal and symmetrical Extrem: General: normal exam except as noted and no edema Objective Data Vital Signs Vital Signs: Vital Signs - 24 hr 05/13/21 22:00 05/14/21 05:56 05/14/21 14:00 Temperature 97.1 F L 97.0 F L 97.4 F L Pulse Rate 78 77 79 Respiratory Rate 18 18 18 Blood Pressure 178/74 H 140/57 L 130/61 Pulse Oximetry 96 97 99 Intake/Output Intake/Output: Intake & Output 05/11/21 05/12/21 05/13/21 05/14/21 23:59 23:59 23:59 23:59 Intake Total 100 1800 1350 Output Total 250 700 Balance 100 1550 650 Meds/Results Medications: Active Medications G
[2021-05-14 20:48] LABS: Basophils Percent Auto 0.1 % (0.2-1.2); Hematocrit 36.4 % (37.0-47.0); Hemoglobin 12.2 g/dL (12.0-15.0); Immature Granulocyte Absolute 0.08 K/mm3 (0.00-0.031); Immature Granulocyte Percent A 0.9 % (0-0.5); Lymphocytes Absolute Auto 0.77 K/mm3 (0.9-3.2); Lymphocytes Percent Auto 8.3 % (18.3-44.2); Mean Corpuscular HGB Conc 33.5 g/dl (32-36); Mean Corpuscular Hemoglobin 29.3 pg (26-34); Mean Corpuscular Volume 87.3 fl (80-100); Mean Platelet Volume 9.3 fl (7.4-10.4); Monocytes Absolute Auto 0.3 K/mm3 (0.1-0.6); Monocytes Percent Auto 3.6 % (2.6-8.5); Neutrophils Absolute Auto 8.1 K/mm3 (1.3-6.7); Neutrophils Percent Auto 87.1 % (45.5-73.1); Platelet Count Result 261 k/mm3 (150-375); Red Blood Count 4.17 M/mm3 (4.2-5.4); Red Cell Distribution Width 13.2 % (11.5-14.5); White Blood Count 9.3 K/mm3 (4.5-10.0)
[2021-05-14] MEDS: HYDROcodone/acetaminophen (*CRX) 5-325 MG TABLET 1 TAB PO (20:54)
[2021-05-14 20:58] LABS: Partial Thromboplastin Time 23.8 SECONDS (22.3-36.8); Prothrombin Time 13.5 Seconds (11.1-14.7)
[2021-05-14 21:14] VITALS: BP 115/54; PULSE 62; RESP 20; TEMP 36.1; O2SAT 98
[2021-05-15 04:28] VITALS: BP 140/66; PULSE 74; RESP 18; TEMP 36.1; O2SAT 95
[2021-05-15 08:04] LABS: Basophils Percent Auto 0.1 % (0.2-1.2); Hematocrit 37.5 % (37.0-47.0); Hemoglobin 12.3 g/dL (12.0-15.0); Immature Granulocyte Absolute 0.11 K/mm3 (0.00-0.031); Immature Granulocyte Percent A 0.9 % (0-0.5); Lymphocytes Absolute Auto 1.87 K/mm3 (0.9-3.2); Mean Corpuscular HGB Conc 32.8 g/dl (32-36); Mean Corpuscular Hemoglobin 28.7 pg (26-34); Mean Corpuscular Volume 87.6 fl (80-100); Mean Platelet Volume 9.5 fl (7.4-10.4); Monocytes Absolute Auto 1.2 K/mm3 (0.1-0.6); Monocytes Percent Auto 9.2 % (2.6-8.5); Neutrophils Absolute Auto 9.3 K/mm3 (1.3-6.7); Neutrophils Percent Auto 74.8 % (45.5-73.1); Platelet Count Result 268 k/mm3 (150-375); Red Blood Count 4.28 M/mm3 (4.2-5.4); Red Cell Distribution Width 13.2 % (11.5-14.5); White Blood Count 12.5 K/mm3 (4.5-10.0)
[2021-05-15 08:22] LABS: Alanine Aminotransferase 14 U/L (4-35); Alkaline Phosphatase 52 U/L (38-126); Anion Gap 4 mmol/L (8-16); Aspartate Amino Transferase 18 U/L (14-36); Bilirubin,Total 0.4 mg/dL (0.2-1.3); Blood Urea Nitrogen 29 mg/dL (7-17); Calcium 9.1 mg/dL (8.4-10.2); Carbon Dioxide 27 mmol/L (22-30); Chloride 103 mmol/L (98-107); Estimated CRCL calculation 43 ml/min; Estimated Glomerular Filt Rate > 60; Glucose 91 mg/dL (65-110); Magnesium 2.3 mg/dL (1.6-2.3); Phosphorus 4.1 mg/dL (2.5-4.5); Potassium 4.3 mmol/L (3.4-5.0); Sodium 134 mmol/L (137-145)
[2021-05-15] MEDS: GABAPENTIN 100 MG CAPSULE PO ×3 (09:24→17:09)
[2021-05-15] MEDS: methylPREDNISolone SOD SUCC 40 MG VIAL IV PUSH ×3 (09:24→17:09)
[2021-05-15] MEDS: HEPARIN SODIUM 5,000 UNITS/ML VIAL 5000 UNITS SUB-Q ×2 (09:24→21:29)
[2021-05-15] MEDS: methocarbamoL 750 MG TABLET PO ×4 (09:24→21:29)
[2021-05-15] MEDS: amLODIPine BESYLATE 5 MG TABLET PO (09:24)
--- NOTE | 2021-05-15 12:04 | PM.IMPN ---
Progress Note: A&P Assessment and Plan (1) Sciatica of right side: Code(s): M54.31 - Sciatica, right side Status: Acute (2) Chronic low back pain: Qualifiers: Back pain laterality: unspecified Sciatica laterality: sciatica of right side Sciatica presence: with sciatica Qualified Code(s): M54.41 - Lumbago with sciatica, right side; G89.29 - Other chronic pain Code(s): M54.5 - Low back pain; G89.29 - Other chronic pain Status: Acute (3) Stress and adjustment reaction: Code(s): F43.29 - Adjustment disorder with other symptoms Status: Acute (4) HTN (hypertension): Qualifiers: Hypertension type: unspecified Qualified Code(s): I10 - Essential (primary) hypertension Code(s): I10 - Essential (primary) hypertension Status: Acute (5) Leukocytosis: Qualifiers: Leukocytosis type: unspecified Qualified Code(s): D72.829 - Elevated white blood cell count, unspecified Code(s): D72.829 - Elevated white blood cell count, unspecified Status: Acute (6) Yellow jacket sting: Qualifiers: Encounter type: sequela Injury intent: accidental or unintentional Qualified Code(s): T63.461S - Toxic effect of venom of wasps, accidental (unintentional), sequela Code(s): T63.461A - Toxic effect of venom of wasps, accidental (unintentional), initial encounter Status: Resolved Additional Plan Right lower extremity pain, concern for disc herniation Patient has chronic pain, treated with several medications, however for a few weeks, has been significantly worse Continue methocarbamol and gabapentin in addition to steroid injections Will attempt to obtain MRI, as physical exam positive straight leg test and shooting pain, all indicative of disc herniation No red flag signs, including bowel or bladder symptoms, saddle anesthesia oral lower extremity weakness Continue physical therapy May require outpatient follow-up with pain specialist in neurosurgery for nerve block Transient leukocytosis most likely to steroids Subjective Date/time seen: 05/15/21 12:04 Patient continues to right leg, making it difficult walk. Denies any other acute medical Review of Systems Review of Systems: All systems reviewed & are unremarkable except as noted in HPI and below Constitutional: Constitutional: Reports fatigue and Reports weakness Neurologic: Reports weakness Endocrine: Endocrine: Reports fatigue Exam Narrative: GENERAL: The patient is well developed, appears to be in significant distress and tearful from pain HEENT: Nonicteric sclerae, PERRLA, EOMI. Oropharynx clear. Moist mucous membranes. Conjunctivae appear well perfused. CHEST: Chest wall is nontender. HEART: Regular rate and rhythm without murmur, rubs, or gallops LUNGS: Clear to auscultation bilaterally. no respiratory distress ABDOMEN: Soft, positive bowel sounds, non-tender, no organomegaly. SKIN: No rash, no excessive bruising, petechiae, or purpura. NEUROLOGIC: Cranial nerves II-XII intact, alert and oriented x 3, no gross motor deficits EXTREMITIES: Back with tender paraspinal lumbar area negative straight leg raise test non restricted range of motion on hip bilateral reflexes normal and symmetrical Extrem: General: normal exam except as noted and no edema Objective Data Vital Signs Vital Signs: Vital Signs - 24 hr 05/14/21 14:00 05/14/21 21:14 05/15/21 04:28 Temperature 97.4 F L 96.9 F L 96.9 F L Pulse Rate 79 62 74 Respiratory Rate 18 20 18 Blood Pressure 130/61 115/54 L 140/66 Pulse Oximetry 99 98 95 Intake/Output Intake/Output: Intake & Output 05/12/21 05/13/21 05/14/21 05/15/21 23:59 23:59 23:59 23:59 Intake Total 100 1800 2290 630 Output Total 250 700 Balance 100 1550 1590 630 Meds/Results Medications: Active Medications Generic Name Dose Route Start Last Admin Trade Name Freq PRN Reason Stop Dose Admin Hydrocodone Bitart/Acetaminophen 1 tab
[2021-05-15 14:00] VITALS: BP 142/62; PULSE 74; RESP 18; TEMP 36.7; O2SAT 97
[2021-05-15 21:04] VITALS: BP 156/71; PULSE 78; RESP 18; TEMP 36; O2SAT 98
[2021-05-15] MEDS: HYDROcodone/acetaminophen (*CRX) 5-325 MG TABLET 1 TAB PO (21:29)
[2021-05-15] MEDS: ALPRAZolam (*CRX) 0.5 MG TABLET PO (21:29)
[2021-05-16] MEDS: HYDROcodone/acetaminophen (*CRX) 5-325 MG TABLET 1 TAB PO ×2 (04:33→20:50)
[2021-05-16 06:00] VITALS: BP 169/77; PULSE 66; RESP 16; TEMP 36.1; O2SAT 98
[2021-05-16 07:32] LABS: Basophils Percent Auto 0.2 % (0.2-1.2); Hematocrit 38.2 % (37.0-47.0); Hemoglobin 12.1 g/dL (12.0-15.0); Immature Granulocyte Absolute 0.14 K/mm3 (0.00-0.031); Immature Granulocyte Percent A 1.3 % (0-0.5); Lymphocytes Absolute Auto 1.49 K/mm3 (0.9-3.2); Lymphocytes Percent Auto 13.7 % (18.3-44.2); Mean Corpuscular HGB Conc 31.7 g/dl (32-36); Mean Corpuscular Hemoglobin 28.8 pg (26-34); Mean Platelet Volume 9.5 fl (7.4-10.4); Monocytes Percent Auto 8.9 % (2.6-8.5); Neutrophils Absolute Auto 8.3 K/mm3 (1.3-6.7); Neutrophils Percent Auto 75.9 % (45.5-73.1); Platelet Count Result 251 k/mm3 (150-375); Red Cell Distribution Width 13.3 % (11.5-14.5); White Blood Count 10.9 K/mm3 (4.5-10.0)
[2021-05-16 08:54] LABS: Alanine Aminotransferase 25 U/L (4-35); Alkaline Phosphatase 59 U/L (38-126); Anion Gap 0 mmol/L (8-16); Aspartate Amino Transferase 25 U/L (14-36); Bilirubin,Total 0.3 mg/dL (0.2-1.3); Blood Urea Nitrogen 25 mg/dL (7-17); Carbon Dioxide 31 mmol/L (22-30); Chloride 104 mmol/L (98-107); Estimated CRCL calculation 48 ml/min; Estimated Glomerular Filt Rate > 60; Glucose 100 mg/dL (65-110); Magnesium 2.3 mg/dL (1.6-2.3); Phosphorus 3.7 mg/dL (2.5-4.5); Potassium 4.5 mmol/L (3.4-5.0); Sodium 135 mmol/L (137-145)
[2021-05-16] MEDS: methocarbamoL 750 MG TABLET PO ×3 (09:38→22:57)
[2021-05-16] MEDS: methylPREDNISolone SOD SUCC 40 MG VIAL IV PUSH ×2 (09:38→14:53)
[2021-05-16] MEDS: ONDANSETRON INJ 4 MG/2 ML VIAL IV PUSH (09:38)
[2021-05-16] MEDS: GABAPENTIN 100 MG CAPSULE PO ×2 (09:38→14:53)
[2021-05-16] MEDS: amLODIPine BESYLATE 5 MG TABLET PO (09:38)
[2021-05-16] MEDS: HEPARIN SODIUM 5,000 UNITS/ML VIAL 5000 UNITS SUB-Q ×2 (09:39→20:49)
--- NOTE | 2021-05-16 10:33 | PM.IMPN ---
Progress Note: A&P Assessment and Plan (1) Sciatica of right side: Code(s): M54.31 - Sciatica, right side Status: Acute (2) Chronic low back pain: Qualifiers: Back pain laterality: unspecified Sciatica laterality: sciatica of right side Sciatica presence: with sciatica Qualified Code(s): M54.41 - Lumbago with sciatica, right side; G89.29 - Other chronic pain Code(s): M54.5 - Low back pain; G89.29 - Other chronic pain Status: Acute (3) Stress and adjustment reaction: Code(s): F43.29 - Adjustment disorder with other symptoms Status: Acute (4) HTN (hypertension): Qualifiers: Hypertension type: unspecified Qualified Code(s): I10 - Essential (primary) hypertension Code(s): I10 - Essential (primary) hypertension Status: Acute (5) Leukocytosis: Qualifiers: Leukocytosis type: unspecified Qualified Code(s): D72.829 - Elevated white blood cell count, unspecified Code(s): D72.829 - Elevated white blood cell count, unspecified Status: Acute (6) Yellow jacket sting: Qualifiers: Encounter type: sequela Injury intent: accidental or unintentional Qualified Code(s): T63.461S - Toxic effect of venom of wasps, accidental (unintentional), sequela Code(s): T63.461A - Toxic effect of venom of wasps, accidental (unintentional), initial encounter Status: Resolved Additional Plan Right lower extremity pain, most likely related to spondylosis Patient has chronic pain, treated with several medications, however for a few weeks, has been significantly worse Continue methocarbamol and gabapentin in addition to steroid injections MRI suggestive of spondylosis, age-related spinal column changes No red flag signs, including bowel or bladder symptoms, saddle anesthesia oral lower extremity weakness Continue physical therapy, patient should go to rehab upon discharge May require outpatient follow-up with pain specialist in neurosurgery for nerve block Transient leukocytosis most likely to steroids Subjective Date/time seen: 05/16/21 10:33 No acute medical complaints, continues to have severe back pain limiting mobility Review of Systems Review of Systems: No acute medical complaints All systems reviewed & are unremarkable except as noted in HPI and below Constitutional: Constitutional: Reports fatigue and Reports weakness Neurologic: Reports weakness Endocrine: Endocrine: Reports fatigue Exam Narrative: GENERAL: The patient is well developed, appears to be in significant distress and tearful from pain HEENT: Nonicteric sclerae, PERRLA, EOMI. Oropharynx clear. Moist mucous membranes. Conjunctivae appear well perfused. CHEST: Chest wall is nontender. HEART: Regular rate and rhythm without murmur, rubs, or gallops LUNGS: Clear to auscultation bilaterally. no respiratory distress ABDOMEN: Soft, positive bowel sounds, non-tender, no organomegaly. SKIN: No rash, no excessive bruising, petechiae, or purpura. NEUROLOGIC: Cranial nerves II-XII intact, alert and oriented x 3, no gross motor deficits EXTREMITIES: Back with tender paraspinal lumbar area negative straight leg raise test non restricted range of motion on hip bilateral reflexes normal and symmetrical Extrem: General: normal exam except as noted and no edema Objective Data Vital Signs Vital Signs: Vital Signs - 24 hr 05/15/21 14:00 05/15/21 21:04 05/16/21 06:00 Temperature 98.1 F 96.8 F L 96.9 F L Pulse Rate 74 78 66 Respiratory Rate 18 18 16 Blood Pressure 142/62 H 156/71 H 169/77 H Pulse Oximetry 97 98 98 Intake/Output Intake/Output: Intake & Output 05/13/21 05/14/21 05/15/21 05/16/21 23:59 23:59 23:59 23:59 Intake Total 1800 2290 1290 680 Output Total 250 700 Balance 1550 1590 1290 680 Meds/Results Medications: Active Medications Generic Name Dose Route Start Last Admin Trade Name Freq PRN Reason Stop Dose Admin Hydrocodone Bitart/Aceta
[2021-05-16 14:00] VITALS: BP 150/64; PULSE 78; RESP 20; TEMP 36.4; O2SAT 98
[2021-05-16 20:00] VITALS: PULSE 62; RESP 16; O2SAT 100
[2021-05-16 20:20] VITALS: BP 152/64; PULSE 77; RESP 18; TEMP 36.3; O2SAT 95
[2021-05-16] MEDS: ALPRAZolam (*CRX) 0.5 MG TABLET PO (20:49)
[2021-05-17 05:57] VITALS: BP 159/66; PULSE 62; RESP 16; TEMP 36.8; O2SAT 100
[2021-05-17] MEDS: HYDROcodone/acetaminophen (*CRX) 5-325 MG TABLET 1 TAB PO ×3 (06:22→17:36)
[2021-05-17] MEDS: ALPRAZolam (*CRX) 0.5 MG TABLET PO (06:22)
[2021-05-17 07:05] LABS: Basophils Percent Auto 0.4 % (0.2-1.2); Hematocrit 39.2 % (37.0-47.0); Hemoglobin 12.5 g/dL (12.0-15.0); Immature Granulocyte Absolute 0.39 K/mm3 (0.00-0.031); Immature Granulocyte Percent A 3.5 % (0-0.5); Lymphocytes Absolute Auto 1.95 K/mm3 (0.9-3.2); Lymphocytes Percent Auto 17.3 % (18.3-44.2); Mean Corpuscular HGB Conc 31.9 g/dl (32-36); Mean Corpuscular Hemoglobin 28.9 pg (26-34); Mean Corpuscular Volume 90.7 fl (80-100); Mean Platelet Volume 9.4 fl (7.4-10.4); Monocytes Percent Auto 8.9 % (2.6-8.5); Neutrophils Absolute Auto 7.9 K/mm3 (1.3-6.7); Neutrophils Percent Auto 69.9 % (45.5-73.1); Platelet Count Result 266 k/mm3 (150-375); Red Blood Count 4.32 M/mm3 (4.2-5.4); Red Cell Distribution Width 13.5 % (11.5-14.5); White Blood Count 11.3 K/mm3 (4.5-10.0)
[2021-05-17 07:20] LABS: Alanine Aminotransferase 37 U/L (4-35); Albumin Level 4.2 g/dL (3.5-5.1); Alkaline Phosphatase 62 U/L (38-126); Anion Gap 4 mmol/L (8-16); Aspartate Amino Transferase 26 U/L (14-36); Bilirubin,Total 0.4 mg/dL (0.2-1.3); Blood Urea Nitrogen 23 mg/dL (7-17); Calcium 8.9 mg/dL (8.4-10.2); Carbon Dioxide 32 mmol/L (22-30); Chloride 99 mmol/L (98-107); Estimated CRCL calculation 43 ml/min; Estimated Glomerular Filt Rate > 60; Glucose 103 mg/dL (65-110); Magnesium 2.3 mg/dL (1.6-2.3); Phosphorus 3.5 mg/dL (2.5-4.5); Potassium 3.8 mmol/L (3.4-5.0); Sodium 135 mmol/L (137-145)
[2021-05-17] MEDS: amLODIPine BESYLATE 5 MG TABLET PO (09:57)
[2021-05-17] MEDS: methocarbamoL 750 MG TABLET PO ×3 (09:57→17:36)
[2021-05-17] MEDS: methylPREDNISolone SOD SUCC 40 MG VIAL IV PUSH ×2 (09:57→13:36)
[2021-05-17] MEDS: HEPARIN SODIUM 5,000 UNITS/ML VIAL 5000 UNITS SUB-Q (09:57)
[2021-05-17] MEDS: GABAPENTIN 100 MG CAPSULE PO (09:57)
[2021-05-17 11:26] VITALS: O2SAT 99
[2021-05-17] MEDS: GABAPENTIN 100 MG CAPSULE 200 MG PO ×2 (13:36→17:36)
[2021-05-17] MEDS: CYCLOBENZAPRINE HCL 5 MG TABLET PO (13:36)
[2021-05-17 14:00] VITALS: BP 151/68; PULSE 72; RESP 14; TEMP 36.8; O2SAT 98
--- NOTE | 2021-05-17 14:41 | PM.IMPN ---
Progress Note: A&P Assessment and Plan (1) Sciatica of right side: Code(s): M54.31 - Sciatica, right side Status: Acute (2) Chronic low back pain: Qualifiers: Back pain laterality: unspecified Sciatica laterality: sciatica of right side Sciatica presence: with sciatica Qualified Code(s): M54.41 - Lumbago with sciatica, right side; G89.29 - Other chronic pain Code(s): M54.5 - Low back pain; G89.29 - Other chronic pain Status: Acute (3) Stress and adjustment reaction: Code(s): F43.29 - Adjustment disorder with other symptoms Status: Acute (4) HTN (hypertension): Qualifiers: Hypertension type: unspecified Qualified Code(s): I10 - Essential (primary) hypertension Code(s): I10 - Essential (primary) hypertension Status: Acute (5) Leukocytosis: Qualifiers: Leukocytosis type: unspecified Qualified Code(s): D72.829 - Elevated white blood cell count, unspecified Code(s): D72.829 - Elevated white blood cell count, unspecified Status: Acute (6) Yellow jacket sting: Qualifiers: Encounter type: sequela Injury intent: accidental or unintentional Qualified Code(s): T63.461S - Toxic effect of venom of wasps, accidental (unintentional), sequela Code(s): T63.461A - Toxic effect of venom of wasps, accidental (unintentional), initial encounter Status: Resolved Additional Plan Right lower extremity pain, most likely related to spondylosis 05/17/21 14:41 Patient has chronic pain, treated with several medications, however for a few weeks, has been significantly worse Continue methocarbamol and gabapentin in addition to steroid injections MRI suggestive of spondylosis, age-related spinal column changes No red flag signs, including bowel or bladder symptoms, saddle anesthesia oral lower extremity weakness Continue physical therapy, patient should go to rehab upon discharge May require outpatient follow-up with pain specialist in neurosurgery for nerve block Transient leukocytosis most likely to steroids. today patient pain is getting worse and not controlled on current regimen, will increase gabapentin to 200 mg t.i.d. from 100 mg t.i.d. will add cyclobenzaprine 5 mg t.i.d. to help with her pain, patient is insisting to be transferred to [facility] was spinal surgeon evaluation, I did send results of MRI and CT scan of lumbar spine to spinal surgeon at the hospital and spoke with Dr. Adames he will review the imaging awaiting to hear from the surgeon, continue PT OT and pain management and further recommendation to follow. Subjective Date/time seen: 05/17/21 14:41 Patient has chronic pain, treated with several medications, however for a few weeks, has been significantly worse Continue methocarbamol and gabapentin in addition to steroid injections MRI suggestive of spondylosis, age-related spinal column changes No red flag signs, including bowel or bladder symptoms, saddle anesthesia oral lower extremity weakness Continue physical therapy, patient should go to rehab upon discharge May require outpatient follow-up with pain specialist in neurosurgery for nerve block Transient leukocytosis most likely to steroids. today patient pain is getting worse and not controlled on current regimen, will increase gabapentin to 200 mg t.i.d. from 100 mg t.i.d. will add cyclobenzaprine 5 mg t.i.d. to help with her pain, patient is insisting to be transferred to [facility] was spinal surgeon evaluation, I did send results of MRI and CT scan of lumbar spine to spinal surgeon at the hospital and spoke with Dr. Adames he will review the imaging awaiting to hear from the surgeon, continue PT OT and pain management and further recommendation to follow. Review of Systems Review of Systems: All systems reviewed & are unremarkable except as noted in HPI and below Exam Narrative: Patient is comfortable, NAD HEENT: eyes are clear a
--- NOTE | 2021-05-17 17:13 | PM.DS ---
DS: Admitting Diagnosis Admitting Diagnosis Chief Complaint: Back pain and right hip pain DS: Discharge Diagnosis Discharge Diagnosis (1) Sciatica of right side: Code(s): M54.31 - Sciatica, right side Status: Acute (2) Chronic low back pain: Qualifiers: Back pain laterality: unspecified Sciatica laterality: sciatica of right side Sciatica presence: with sciatica Qualified Code(s): M54.41 - Lumbago with sciatica, right side; G89.29 - Other chronic pain Code(s): M54.5 - Low back pain; G89.29 - Other chronic pain Status: Acute (3) Stress and adjustment reaction: Code(s): F43.29 - Adjustment disorder with other symptoms Status: Acute (4) HTN (hypertension): Qualifiers: Hypertension type: unspecified Qualified Code(s): I10 - Essential (primary) hypertension Code(s): I10 - Essential (primary) hypertension Status: Acute (5) Leukocytosis: Qualifiers: Leukocytosis type: unspecified Qualified Code(s): D72.829 - Elevated white blood cell count, unspecified Code(s): D72.829 - Elevated white blood cell count, unspecified Status: Acute (6) Yellow jacket sting: Qualifiers: Encounter type: sequela Injury intent: accidental or unintentional Qualified Code(s): T63.461S - Toxic effect of venom of wasps, accidental (unintentional), sequela Code(s): T63.461A - Toxic effect of venom of wasps, accidental (unintentional), initial encounter Status: Resolved DS: Summary Hospital Course Reason for hospitalization: Chief Complaint: Back pain and right hip pain Narrative: Patient is here for evaluation of back pain which has gotten worse since last evening. She reports the pain is more on the right side of the back along with her right hip. She was here in the ER on 05/10 after she was stung by a yellow jacket in her right thigh. She reports that the pain is different from the pain that she is having currently. She was sent home on gabapentin and prednisone. She reports the thigh pain where she was stung is getting better and has a lidocaine patch on she states she is not able to ambulate because of her back pain that radiates down to her thigh up to the knee. She denies any urinary complaints and no stool incontinence. She was attempted to be ambulated in the ER but was unable to do so or refused to do so because of uncontrolled pain and hence he is getting admitted for intractable pain. She denies any fever or chills no shortness of breath or chest pain Hospital Course: patient was discharged on 05/17/2021 Patient has chronic pain, treated with several medications, however for a few weeks, has been significantly worse Continue methocarbamol and gabapentin in addition to steroid injections MRI suggestive of spondylosis, age-related spinal column changes No red flag signs, including bowel or bladder symptoms, saddle anesthesia oral lower extremity weakness Continue physical therapy, patient should go to rehab upon discharge May require outpatient follow-up with pain specialist in neurosurgery for nerve block Transient leukocytosis most likely to steroids. today patient pain is getting worse and not controlled on current regimen, will increase gabapentin to 200 mg t.i.d. from 100 mg t.i.d. will add cyclobenzaprine 5 mg t.i.d. to help with her pain, patient is insisting to be transferred to [facility] was spinal surgeon evaluation, I did send results of MRI and CT scan of lumbar spine to spinal surgeon at the hospital and spoke with Dr. Adames he will review the imaging awaiting to hear from the surgeon, continue PT OT and pain management and further recommendation to follow. discussed with spine surgeon recommending conservative management with pain medication and PT OT, patient may follow as outpatient in his clinic and further recommendation to follow. Status at Discharge Functional status at discharge: uses cane/walker Overa
== END 2021-05-17 18:30 | disposition home health service (06) | DRG 552 ==
LOC: ANHED 19:51 → ANH3MEDSUR 22:05
PROVIDERS: Internal Medicine; Physician Assistant; Admitting Provider Internal Medicine; Emergency Provider Emergency Medicine; PCP Family Medicine; Visit Provider Family Medicine
DX: M54.41 Lumbago with sciatica, right side (principal); G89.29 Other chronic pain; I10 Essential (primary) hypertension; F43.29 Adjustment disorder with other symptoms; D72.829 Elevated white blood cell count, unspecified; T63.461S Toxic effect of venom of wasps, accidental (unintentional), sequela; M25.551 Pain in right hip; Z79.899 Other long term (current) drug therapy
CPT/HCPCS: 36415; 72131; 72148; 73700; 74176; 80048; 80053; 81003; 82550; 83735; 84100; 85025; 85610; 85730; 96365; 96375; 96376; 97110; 97140; 97163; 97530; 99285; A9270; J0131; J1644; J1885; J2270; J2405; J2920

== ENCOUNTER 2021-08-01 15:11 | Outpatient (CLI) | payer MEDICARE, SELFPAY ==
--- NOTE | ~2021-08-01 | XR_ITS ---
XR lumbar spine min 4V DATE: 08/01/2021 15:45 INDICATION: Back pain, hurts to walk TECHNIQUE: AP view. Standing flexion, extension and neutral lateral views. COMPARISON: 05/16/2021 MRI lumbar spine 05/13/2021 CT lumbar spine FINDINGS: There is diffuse osteopenia. There is degenerative disc disease throughout the included lower thoracic spine. There is vertebroplasty at T12 compression fracture. There is very severe degenerative disc disease at L1-2, moderately severe degenerative disc disease a t L2-3 and L3-4, moderate degenerative disc disease at L4-5. There is prominent degenerative change at the apophyseal joints in the mid and lower lumbar spine, wi th associated 4 mm anterolisthesis at L4-5, increasing to 4.5 m in flexion, diminished to 3.5 mm in e xtension. No fracture or bone destruction is detected. The included lower thoracic and lumbar pedicles appear i ntact. The sacroiliac joints are intact. Abdominal aortic calcification, without evidence of aneurysm. IMPRESSION: Mild to moderate compression fracture and vertebroplasty at T12 Diffuse osteopenia Multilevel degenerative disc disease, most severe at L1-2 Prominent degenerative change at the apophyseal joints in the mid and lower lumbar spine with associa jerry grade 1 anterolisthesis at L4-5 Reviewed, dictated and finalized at location A. IMPRESSION: Mild to moderate compression fracture and vertebroplasty at T12 Diffuse osteopenia Multilevel degenerative disc disease, most severe at L1-2 Prominent degenerative change at the apophyseal joints in the mid and lower lum bar spine with associated grade 1 anterolisthesis at L4-5
--- NOTE | ~2021-08-01 | XR_ITS ---
XR hip RT min 2V DATE: 08/01/2021 15:45 INDICATION: Right hip pain TECHNIQUE: AP, lateral, crosstable lateral views of right hip COMPARISON: 05/13/2021 CT right hip 05/10/2021 right hip FINDINGS: Mild osteopenia. There is mild spurring of the right femoral head consistent with mild osteoarthritis. No fracture or dislocation, avascular necrosis or bone destruction is detected. The pubic symphysis and sacroiliac joints are intact. There is mild levoscoliosis and degenerative disc disease of the lumbar spine. IMPRESSION: Mild right hip osteoarthritis Reviewed, dictated and finalized at location A.
== END 2021-08-01 15:12 | disposition home or self-care (01) ==
PROVIDERS: PCP Family Medicine
DX: M85.88 Other specified disorders of bone density and structure, other site (principal); M51.36 Other intervertebral disc degeneration, lumbar region; M16.11 Unilateral primary osteoarthritis, right hip
CPT/HCPCS: 72110; 73502

== ENCOUNTER 2022-11-29 15:46 | Outpatient (CLI) | payer MEDICARE, SELFPAY ==
--- NOTE | ~2022-11-29 | CT_ITS ---
EXAMINATION: CT brain wo con DATE: 11/29/2022 16:03 INDICATION: Collapse. TECHNIQUE: Computed tomography (CT) of the head was performed without intravenous contrast. The mA wa s adjusted according to patient size. Iterative reconstruction technique was employed. The dose-lengt h product was 605.33 mGy-cm. COMPARISON: head CT 01/02/18 FINDINGS: There is no intracranial hemorrhage, acute infarction, or abnormal intracranial mass lesion . There are scattered areas of low attenuation in the cerebral white matter, which is within normal l imits for the patient's age. The ventricles are normal in size. There are likely changes of ocular le ns replacement surgeries. The paranasal sinuses are clear. The mastoid air cells are normal. IMPRESSION: 1. Normal aging brain. Reviewed, dictated and finalized at location A. BANDER IMPRESSION: 1. Normal aging brain.
== END 2022-11-29 15:47 | disposition home or self-care (01) ==
LOC: ANHIMG 15:48
PROVIDERS: PCP Family Medicine; Visit Provider Physician Assistant
DX: R55 Syncope and collapse (principal)
CPT/HCPCS: 70450

== ENCOUNTER 2022-12-01 10:13 | Outpatient (CLI) | payer MEDICARE, SELFPAY ==
--- NOTE | ~2022-12-01 | XR_ITS ---
XR cervical spine 4-5V 12/01/2022 10:36 Indication: Cervicalgia Procedure: 5 views of the cervical spine Comparison: No prior studies for comparison. Findings: There is reversal of normal cervical lordosis. There is significant disc narrowing at C4-5, C5-6, C6-7 and C7-T1. There are prominent ventral osteophytes at these levels. No prevertebral soft tissue swelling. There is advanced multilevel uncinate and facet hypertrophy. Odontoid process is nor mal. Impression: 1: Severe cervical spondylosis. Reviewed, dictated and finalized at location B. RMATION AND REFERRAL DIRECTOR Impression: 1: Severe cervical spondylosis.
== END 2022-12-01 10:14 | disposition home or self-care (01) ==
PROVIDERS: PCP Family Medicine; Visit Provider Physician Assistant
DX: M47.892 Other spondylosis, cervical region (principal)
CPT/HCPCS: 72050

== ENCOUNTER 2023-01-11 11:00 | Outpatient (CLI) | payer MEDICARE, SELFPAY ==
--- NOTE | ~2023-01-11 | XR_ITS ---
XR forearm RT 2V DATE: 01/11/2023 11:20 INDICATION: Golf ball injury to forearm, forearm pain TECHNIQUE: AP and lateral views COMPARISON: None FINDINGS: No fracture or dislocation. No elbow joint effusion. Normal alignment at the elbow and wris t joints. No significant emphysema or radiopaque soft tissue foreign body. Line there is osteoarthritis at the first carpometacarpal joint. IMPRESSION: No fracture or dislocation Reviewed, dictated and finalized at location A. IMPRESSION: No fracture or dislocation
== END 2023-01-11 11:01 | disposition home or self-care (01) ==
PROVIDERS: PCP Family Medicine; Visit Provider Physician Assistant
DX: M79.631 Pain in right forearm (principal)
CPT/HCPCS: 73090

== ENCOUNTER 2023-09-26 13:45 | Outpatient (CLI) | payer MEDICARE, SELFPAY ==
--- NOTE | ~2023-09-26 | XR_ITS ---
EXAMINATION: XR chest 2V 09/26/2023 14:31 INDICATION: Cough and shortness of breath PROCEDURE: 2 view chest COMPARISON: No prior studies for comparison. FINDINGS: The lungs are clear. The cardiomediastinal silhouette is within normal limits. There are no pleural effusions. There is no pneumothorax suspected. There are vertebroplasty changes in the l ower thoracic spine. IMPRESSION: 1: NO ACUTE CARDIOPULMONARY DISEASE. Reviewed, dictated and finalized at location B. ANDRA DEVELOPER
== END 2023-09-26 13:46 | disposition home or self-care (01) ==
PROVIDERS: PCP Family Medicine; Visit Provider Physician Assistant Medical
DX: R05.9 Cough, unspecified (principal); R06.02 Shortness of breath
CPT/HCPCS: 71046

== ENCOUNTER 2024-01-01 07:31 | Outpatient (CLI) | payer MEDICARE, SELFPAY ==
--- NOTE | ~2024-01-01 | NM_ITS ---
EXAMINATION: NM jordin stress w perfusion DATE: 01/01/2024 11:38 INDICATION: Other forms of dyspnea TECHNIQUE: Rest images were obtained following intravenous administration of 10.0 mCi Tc99m tetrofosm in (Myoview). The patient was infused intravenously with Lexiscan (Regadenoson). Then, 31.6 mCi Tc99m tetrofosmin (Myoview) was administered intravenously, and stress images were obtained. Data was rupa nstructed into short axis and horizontal and vertical long axis SPECT images. Gated SPECT images were also obtained. COMPARISON: None. FINDINGS: There is no definite reversible or fixed perfusion abnormality to suggest ischemia or infar ction. There is normal left ventricular chamber size, wall motion and ejection fraction. Left ventr icular ejection fraction measures >70%. IMPRESSION: 1. Normal myocardial perfusion at rest and during stress. 2. Left ventricular ejection fraction measuring >70%. Reviewed, dictated and finalized at location A.
--- NOTE | 2024-01-01 07:40 | ECHO_ITS ---
Patient Info Name: Becka Mckinney Age: 83 years : 1940 Gender: Female Ht: 53 in Wt: 123 lbs BSA: 1.47 m2 HR: 73 bpm BP: 157 / 71 mmHg Technical Quality: Good Exam Date: 01/01/2024 8:00 AM Exam Location: Echo Lab Patient Status: Outpatient Admit Date: 01/01/2024 Staff Ordering Physician: William Márquez DO Asset Protection Representative: Maurice Lozada RDCS Attending Provider: William Márquez DO Referring Physician: Willi MOURA; Exam Type: CA echo dop color flow w con Study Info Indications R06.00 - Dyspnea, unspecified Complete two-dimensional, color flow and Doppler transthoracic echocardiogram is performed. Summary 1. Complete two-dimensional, color flow and Doppler transthoracic echocardiogram is performed. 2. Left ventricular chamber dimension is normal. 3. Left ventricular systolic function is normal, estimated at 60-65%. 4. The left ventricular diastolic function is grade I diastolic dysfunction. 5. E/e' 12 is mildly elevated. 6. Left atrial chamber dimension is moderately enlarged. 7. There is mild aortic valve sclerosis. 8. There is trace aortic valve regurgitation. 9. There is mild mitral valve regurgitation. 10. There is mild tricuspid valve regurgitation. 11. No pulmonary hypertension, estimated pulmonary arterial systolic pressure is 33 mmHg. 12. There is trace pulmonic regurgitation. Left Ventricle E/e' 12 is mildly elevated. Left ventricular chamber dimension is normal. Left ventricular systolic function is normal, estimated at 60-65%. The left ventricular diastolic function is grade I diastolic dysfunction. Right Ventricle Right ventricular chamber dimension is normal. Right ventricular systolic function is normal. Left Atria Left atrial chamber dimension is moderately enlarged. Right Atria Right atrial chamber dimension is normal. Aortic Valve The aortic valve is trileaflet. There is mild aortic valve sclerosis. There is no aortic valve stenosis. There is trace aortic valve regurgitation. Pulmonic Valve There is trace pulmonic regurgitation. Mitral Valve There is no mitral valve stenosis. There is mild mitral valve regurgitation. Tricuspid Valve There is mild tricuspid valve regurgitation. No pulmonary hypertension, estimated pulmonary arterial systolic pressure is 33 mmHg. Pericardium/Pleural There is no pericardial effusion. Inferior Vena Cava Normal inferior vena cava with >50% collapse upon inspiration consistent with normal right atrial pressure, 5 mmHg. Aorta The aortic root size at the sinus of Valsalva is normal. Left Ventricular Outflow Tract Name Value Normal LVOT 2D LVOT Diameter 1.88 cm LVOT Doppler LVOT Peak Gradient 3 mmHg LVOT Mean Gradient 2 mmHg LVOT VTI 19.96 cm LVOT VTI/AV VTI Ratio 0.66 LVOT Stroke Volume 55.45 ml LVOT CO 3.37 l/min LVOT CI 2.29 L/min/m2 Pulmonic Valve Name Value Normal
--- NOTE | 2024-01-01 07:41 | EST_ITS ---
Patient Info Name: Becka Mckinney Age: 83 years : 1940 Gender: Female Ht: 63 in Wt: 123 lbs BSA: 1.58 m2 HR: 68 bpm BP: 143 / 71 mmHg Exam Date: 01/01/2024 9:52 AM Exam Location: Echo Lab Patient Status: Outpatient Admit Date: 01/01/2024 Staff Ordering Physician: William Márquez DO Attending Provider: William Márquez DO Exercise Technologist: Agatha Gracia RDCS Exercise Physician: William Márquez DO Exam Type: CA stress jordin w NM Study Info A regadenoson stress test was performed. Summary 1. 1. Negative lexiscan stress test for ischemic ST changes by ECG criteria. 2. 2. Intermittent ventricular bigeminy. 3. 3. Nuclear scan to follow and will be reported separately. Please correlate with it. 4. 4. Patient informed of the above results. Protocol: Lexiscan Stress ECG Details Stage: REST Duration (min): 5 min : 19 sec HR (bpm): 69 SBP (mmHg): 143 DBP (mmHg): 71 Stage: REST Duration (min): 8 min : 46 sec HR (bpm): 71 SBP (mmHg): 143 DBP (mmHg): 71 Stage: STAGE 1 Duration (min): 0 min : 59 sec HR (bpm): 89 SBP (mmHg): 134 DBP (mmHg): 75 Stage: RECOVERY Duration (min): 1 min : 0 sec HR (bpm): 84 SBP (mmHg): 134 DBP (mmHg): 75 Stage: RECOVERY Duration (min): 2 min : 0 sec HR (bpm): 83 SBP (mmHg): 134 DBP (mmHg): 75 Stage: RECOVERY Duration (min): 3 min : 0 sec HR (bpm): 83 SBP (mmHg): 128 DBP (mmHg): 83 Stage: RECOVERY Duration (min): 4 min : 0 sec HR (bpm): 85 SBP (mmHg): 128 DBP (mmHg): 83 Stage: RECOVERY Duration (min): 5 min : 0 sec HR (bpm): 81 SBP (mmHg): 111 DBP (mmHg): 76 Stage: RECOVERY Duration (min): 5 min : 7 sec HR (bpm): 84 SBP (mmHg): 111 DBP (mmHg): 76 Rest HR: 71 bpm Peak HR: 89 bpm Rest Sys BP: 143 mmHg Peak Sys BP: 134 mmHg Max Pred HR: 138 bpm % Max Pred HR: 64 % Target HR: 117 bpm Max RPP: 11,926 bpm*mmHg Termination Reason: Completed protocol Cardiac Symptoms: Shortness of breath Total Time: 1 min : 0 sec Rest Hall BP: 71 mmHg Peak Hall BP: 75 mmHg Total Dose: 0.4 mg Resting ECG Sinus rhythm. Stress ECG No ST changes. Arrhythmias Intermittent ventricular bigeminy and PVC's. Report Signatures
== END 2024-01-01 07:32 | disposition home or self-care (01) ==
PROVIDERS: PCP Family Medicine; Visit Provider Internal Medicine Cardiovascular Disease
DX: R06.09 Other forms of dyspnea (principal); I34.0 Nonrheumatic mitral (valve) insufficiency; I36.1 Nonrheumatic tricuspid (valve) insufficiency; I35.1 Nonrheumatic aortic (valve) insufficiency
CPT/HCPCS: 73120; 78452; 93017; 93306; A9502; C8929; J2785

== ENCOUNTER 2024-01-01 11:11 | Outpatient (CLI) | payer MEDICARE, SELFPAY ==
--- NOTE | ~2024-01-01 | XR_ITS ---
XR hand RT 2V DATE: 01/01/2024 11:24 INDICATION: Pain TECHNIQUE: AP and lateral views COMPARISON: None FINDINGS: There is severe joint space at the triscaphe joint. There is osteophytic changes at the fir st carpometacarpal, first and second metacarpophalangeal and multiple interphalangeal joints particul asher the distal interphalangeal joints of the second through fifth digits. No fracture, dislocation, periosteal reaction or bone destruction is detected. No erosive change or c hondrocalcinosis. IMPRESSION: Polyarticular osteoarthritis Reviewed, dictated and finalized at location B.
== END 2024-01-01 11:12 | disposition home or self-care (01) ==
LOC: ANHIMG 11:14
PROVIDERS: PCP Family Medicine; Visit Provider Family Medicine
DX: M19.041 Primary osteoarthritis, right hand (principal)
CPT/HCPCS: 73120

== ENCOUNTER 2025-05-17 10:17 | Emergency (ER) | payer MEDICARE, SELFPAY ==
--- NOTE | ~2025-05-17 | XR_ITS ---
AP view of the pelvis and AP and lateral views of the right hip Clinical history: Pain Findings: No acute fracture or dislocation is seen. Osseous alignment is anatomic. There is mild dege nerative change of the right hip joint. Soft tissues are unremarkable. 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 Reviewed, dictated and finalized at location . 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
[2025-05-17 10:19] VITALS: BP 166/56; PULSE 93; RESP 20; TEMP 36.4; O2SAT 98
--- OUTSIDE RECORDS SUMMARY | 2025-05-17 10:20 | XMS_ITS | Clinical Summary ---
Author Organization [facility] Address Critical access hospital0 [place] [address] Care Team Providers Care Carry In Worker Name Role Phone William Márquez DO Unavailable Ajit Blackwood MD Primary Care Provider [phone] Allergies Active Allergy Reactions Criticality Noted Date Comments Ciprofloxacin Unknown 02/26/2025 Sulfa Antibiotics Unknown 02/26/2025 Medications amLODIPine (NORVASC) 5 MG tablet Take 1 tablet (5 mg total) by mouth daily. 5 Active amiodarone (PACERONE) 200 MG tablet Take 1 tablet (200 mg total) by mouth daily. 30 tablet 5 5 Active amLODIPine (NORVASC) 10 MG tablet Take 1 tablet (10 mg total) by mouth daily. 5 05/04/20 25 Discontinued metoprolol succinate ER (TOPROL-XL) 25 MG 24 hr tablet Take 1 tablet (25 mg total) by mouth daily. 5 05/04/20 25 Discontinued Active Problems Problem Noted Date Diagnosed Date PVC's (premature ventricular contractions) Dyslipidemia Essential (primary) hypertension Palpitation Encounters Date Type Department Care Team Description 05/11/2025 Orders Only [facility], [address] [id number] Peri Jaquez MD 05/07/2025 Telephone [facility], [address] [address] Peri Jaquez MD Schedule Procedure 05/05/2025 Results Follow-Up [facility], [address] [address] Masha Garcia RN THYROXINE, FREE (FT4), HEPATIC FUNCTION PANEL 05/05/2025 Abstract [facility], [address] [address] Cristino oSlis MA 05/04/2025 12:15 PM CDT Office Visit [facility] [address] [address] Sherrell Waldron PA Follow Up (PVC abl) 05/04/2025 Travel 03/18/2025 2:19 PM CDT Anesthesia Event [facility] Review [place] [address] Maty Mckee MD 03/18/2025 11:50 AM CDT - 03/18/2025 6:58 PM CDT Hospital Encounter [facility] [place] [address] Peri Jaquez MD Schuessler, Martha E, MD Discharge Disposition: Home or Self Care (Routine Discharge) 03/18/2025 Results Follow-Up [facility] THREE [address] [address] Masha Garcia RN BASIC METABOLIC PANEL, CBC W/DIFF AUTOMATED, PROTIME/INR, VENOUS 03/18/2025 Travel 03/17/2025 Telephone [facility] [address] [address] Peri Jaquez MD Information ([facility] Cardiovascular-Dr William Márquez) 02/27/2025 Orders Only [facility] [address], [address] [place] [address] Peri Jaquze MD 02/26/2025 2:45 PM CDT Office Visit [facility] [address], [address] [place] [address] Peri Jaquez MD Arrhythmia (New Consult ) 02/26/2025 Travel from Last 3 Months Immunizations Immunization Administration Dates Next Due FLUAD (IIV, Trivalent, 0.5 M L Pre-filled Syringe) 09/30/2018 Fluzone High Dose (IIV, triv alent, 0.5mL) 06/16/2024,07/28/2019,07/27/2017,2014 Fluzone High Dose - >Age 65 (Prefilled Syringe) 08/01/2023,07/13/2022,07/26/2021 Influenza (Generic) 06/29/2014,06/30/2013 Pneumococcal (Prevnar 13) 07/28/2019 Shingrix 09/26/2019,07/28/2019 Social History Tobacco Use Types Packs/Day Years Used Date Smoking Tobacco: Never Smokeless Tobacco: Never Tobacco Cessation:Counseling Given: Not Answered Alcohol Use Standard Drinks/Week Comments Not Currently 0 (1 standard drink = 0.6 oz pur e alcohol) Comments No Sex and Gender Information Value Date Recorded Sex Assigned at Not on file Legal 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 Gender Identity Not on file Sexual Orientation Not on file Last Filed Vital Signs Vital Sign Reading Time Taken Comments Blood Pressure 148/82 05/04/2025 12:17 PM CDT Pulse 40 05/04/2025 12:17 PM CDT Temperature 36.6 C (97.9 F) 03/18/2025 5:15 PM CDT Respiratory Rate 19 03/18/2025 6:31 PM CDT Oxygen Saturation 97% 05/04/2025 12:17 PM CDT Inhaled Oxygen Concentration - - Weight 55.8 kg (123 lb) 05/04/2025 12:17 PM CDT Height 162.6 cm (5' 4) 05/04/2025 12:17 PM CDT Body Mass Index 21.11 05/04/2025 12:17 PM CDT Plan of Treatment Upcoming Encounters Date Type Department Care Team (Late st Contact Info) Description 07/01/2025 10:45 AM CDT Telephone [facility], [address] [place] [address] Sherrell Waldron PA [facility] [address] [place] [address] 08/11/2025 11:15 AM 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 [address] [place] [address] Health Maintenance Due Date Last Done Comments DTaP, Tdap and Td Vaccines (1 - Tdap) 1959 Annual Medicare Wellness Visit 2006 Dexa Scan (General) 2006 RSV Immunization or 60+ Years (1 - 1-dose 75+ series) 2016 Pneumococcal Vaccine: 50+ Years (2 of 2 - PPSV23) 07/28/2020 07/28/2019 COVID-19 Vaccine ( season) 2024 06/16/2024, 08/01/2023, 05/26/2022, Additional history exists Zoster Vaccines Completed 09/26/2019, 07/28/2019 Meningococcal B Vaccine Aged Out No l onger eligible based on patient's age to complete this topic Meningococcal Vaccine Aged Out No patricia bharti eligible based on patient's age to complete this topic RSV Immunizations Under 20 Months Aged Out No longer eligible based on patient's age to complete this topic Procedures Procedure Name Priority Date/Time Associated Diagnosis Comments ELECTROCARDIOGRAM (NON MIDMARK ACQUIRED) Routine 05/04/2025 12:24 PM CDT PVC's (premature ventricular contractions) HEPATIC FUNCTION PANEL Routine 05/04/2025 TSH (OUTSIDE LAB) Routine 05/04/2025 THYROXINE, FREE (FT4) Routine 05/04/2025 ECG 12-LEAD STAT 03/18/2025 4:32 PM CDT XA PVC ABLATION Routine 03/18/2025 4:12 PM CDT PVC's (premature ventricular contractions) POCT ACTIVATED CLOTTING TIME - ISTAT DOCKED DEVICE Routine 03/18/2025 3:42 PM CDT POCT ACTIVATED CLOTTING TIME - ISTAT DOCKED DEVICE Routine 03/18/2025 3:09 PM CDT TYPE & SCREEN STAT 03/18/2025 11:56 AM CDT PVC's (premature ventricular contractions) PROTHROMBIN TIME, VENOUS STAT 025 11:56 AM CDT PVC's (premature ventricular contractions) CBC W/DIFF AUTOMATED STAT 03/18/2025 11:56 AM CDT PVC's (premature ventricular contractions) BASIC METABOLIC PANEL STAT 03/18/2025 11:56 AM CDT PVC's (premature ventricular contractions) ELECTROCARDIOGRAM (NON MIDMARK ACQUIRED) Routine 02/26/2025 3:10 PM CDT PVC's (premature ventricular contractions) from Last 3 Months Results * ELECTROCARDIOGRAM (05/04/2025 12:24 PM CDT) Only the most recent of2 resultswithin the time period is included. 05/04/2025 12:2 4 PM CDT Narrative JENNA GARCIA - 05/04/2025 9:07 PM CDT Jenna Garcia [facility] Test Date: 2025-05-04 Pat Name: LOREN LAS CRUCES Department: 112 Room: Gender: Female Assistive Technology Trainer: : 1940 Requested By: PERI JAQUEZ Order Number: [id number] Reading MD: Peri Jaquez Measurements Intervals Fontana Rate: 79 P: 55 AK: 162 QRS: 4 QRSD: 75 T: 66 QT: 375 QTc: 430 Interpretive Statements SINUS RHYTHM WITH FREQUENT VENTRICULAR PREMATURE COMPLEXES POSSIBLE LEFT ATRIAL ENLARGEMENT NONSPECIFIC ST & T-WAVE ABNORMALITY ABNORMAL RHYTHM ECG Procedure Note Peri Jaquez MD - 05/04/2025 Jenna Garcia [facility] Test Date: 2025-05-04 Pat Name: LOREN LAS CRUCES Department: 112 Room: Gender: Female Assistive Technology Trainer: : 1940 Requested By: PERI JAQUEZ Order Number: [id number] Reading MD: Peri Jaquez Measurements Intervals Fontana Rate: 79 P: 55 AK: 162 QRS: 4 QRSD: 75 T: 66 QT: 375 QTc: 430 Interpretive Statements SINUS RHYTHM WITH FREQUENT VENTRICULAR PREMATURE COMPLEXES POSSIBLE LEFT ATRIAL ENLARGEMENT NONSPECIFIC ST & T-WAVE ABNORMALITY ABNORMAL RHYTHM ECG us Peri Jaquez MD PROCEDURES-ORDERABLE NO PATTI RGE Final Result JENNA GARCIA * TSH (OUTSIDE LAB) (05/04/2025) TSH 1.180 05/04/2025 us Default History Genericprovider LAB-OUTSIDE/ABST RACTED Final Result * HEPATIC FUNCTION PANEL (05/04/2025) ALBUMIN S/P/B 4.7 3.5 - 5.0 ALKALINE PHOSPHATASE S/P/B 69 ALT 11 AST 21 BILIRUBIN DIRECT S/P/B 0.19 BILIRUBIN TOTAL S/P/B 0.6 TOTAL PROTEIN S/P/B 6.6 05/04/2025 us Default History Genericprovider LABORATORY Final Result * THYROXINE, FREE (FT4) (05/04/2025) FREE T4 1.50 05/04/2025 Default History Genericprovider LABORATORY Final Result * ECG 12 lead (03/18/2025 4:32 PM CDT) 03/18/2025 4:32 PM CDT Narrative [facility] ([facility]) RAD - 03/19/2025 6:18 AM CDT [facility] [address] Test Date: 2025-03-18 Pat Name: LOREN BOSS Department: 40 Room: [facility] Gender: Female Assistive Technology Trainer: : 1940 Requested By: PERI JAQUEZ Order Number: [id number] Reading MD: Flo Barker Measurements Intervals Fontana Rate: 77 P: 40 AK: 152 QRS: -19 QRSD: 89 T: 140 QT: 408 QTc: 462 Interpretive Statements SINUS RHYTHM WITH FREQUENT VENTRICULAR PREMATURE COMPLEXES IN A BIGEMINAL PATTERN ST DEVIATION AND MODERATE T-WAVE ABNORMALITY, CONSIDER LATERAL ISCHEMIA [-0.1+ mV T-WAVE IN I/aVL/V5/V6] Compared to ECG 02/26/2025 15:10:42 Frequent PVCs now present Procedure Note Flo Barker MD - 03/19/[address] Test Date: 2025-03-18 Pat Name: LOREN BOSS Department: 40 Room: [facility] Gender: Female Assistive Technology Trainer: : 1940 Requested By: PERI JAQUEZ Order Number: [id number] Reading MD: Flo Barker Measurements Intervals Fontana Rate: 77 P: 40 AK: 152 QRS: -19 QRSD: 89 T: 140 QT: 408 QTc: 462 Interpretive Statements SINUS RHYTHM WITH FREQUENT VENTRICULAR PREMATURE COMPLEXES IN ABIGEMINAL PATTERN ST DEVIATION AND MODERATE T-WAVE ABNORMALITY, CONSIDER LATERAL ISCHEMIA [-0.1+ mV T-WAVE IN I/aVL/V5/V6] Compared to ECG 02/26/2025 15:10:42 Frequent PVCs now present us Peri Jaquez MD ECG ORDERABLES Final Resul t [facility] ([facility]) RAD * XA PVC ABLATION (03/18/2025 4:12 PM CDT) Anatomical Region Laterality Modality Cardiac Review Scheduling Coordinator Narrative 03/28/2025 7:33 AM CDT [facility] Cardiac Catheterization/EP Lab [phone] PVC Ablation Patient's Name: Loren Boss Date of : 1940 Medical Record: #[id number] Account: #[id number] Physician: Peri Jaquez MD Date: 03/18/2025 Procedure: #[id number] History: 84-year-old female presenting for a PVC ablation. The patient was brought to the lab in the fasting state. Consent was obtained prior to coming into the lab. Anesthesia provided sedation services and provided their own consent. The patient was draped and prepped in the usual standard fashion. The patient's device was interrogated and therapies were discontinued. Access/Catheters: Following access was achieved using ultrasound guidance: 5F RFA, 8F RFV, 9F RFV. Vein was accessed with ultrasound and noted to be patent. Image was saved and archived. Right femoral arteriography showed common femoral arterial access above the bifurcation of profunda. An 8FSoundstar intracardiac echocardiography catheter was advanced to the RA/RV via the 9F access. Using ICE guidance a transseptal puncture was performed through a Vizigo sheath and [place] RF needle. The sheath was advanced across the intra-atrial septum into the left atrium. A Thermocool STSF DF curve catheter was advanced directly into the LV via transseptal sheath. Baseline ICE: ICE catheter advanced to assist in anatomic detailing, as well as catheter placement, and to monitor for ongoing complications. CartoSound was utilized to help define LV anatomy. LV was noted to be normal. No baseline pericardial effusion noted around RV/LV. Ablation / mapping Using Cartosound, 3d anatomic shells were traced using ICE imaging. 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 Initially morphology suggested this was to be located near the aortomitral continuity. However, local activation timing was not particularly early in this region. Initial attempts at ablation here did not suppress the PVC. Additional local activation timing mapping was performed along hte mitral annulus. Ultimately, earlier local times were at the lateral mitral annulus and more apical towards the anterolateral papillary muscle . Ablation here performed up to 40 W. PVCs were markedly suppressed after ablation despite isoprel infusion. Final ICE showed no pericardial effusion. Case end: The 5F RFA was Vascaded. Vascade MVP used for venous hemostasis Final ICE study: Similar EF, no effusions, no changes to valvular lesions, and no dissection of proximal aortic root in long axis seen. Conclusion: Successful AL Papillary muscle PVC ablation. Recommendations: 2 hour bed rest. Continue home medications. Pulse checks tonight. MD ROSANGELA Deras/mehran Interpreted: 03/19/25 Transcribed: 03/23/25 us Peri Jaquez MD [facility] Final Resul t * (ABNORMAL) POCT ACTIVATED CLOTTING TIME - ISTAT DOCKED DEVICE (03/18/2025 3:42 PM CDT) Only the most recent of2 resultswithin the time period is included. ACTIVATED CLOTTING TIME (ACT) 259(H) 74 - 125 SEC 03/18/2025 3:46 PM CDT [facility] SHIFT LEADER CODE 398 03/18/2025 3:46 PM CDT [facility] 03/18/2025 3:42 PM CDT Peri Jaquez MD POCT ORDERABLES - DEVICE Fi nal Result Performing Organization Address [facility]/ZIP Co de Phone Number [facility] [address] [place] [address], [place] [phone] * TYPE & SCREEN (03/18/2025 11:56 AM CDT) Pathologist [facility] ABO/RH A POSITIVE 03/18/2025 1:10 PM CDT [facility] ANTIBODY SCREEN NEGATIVE 03/18/2025 1:10 PM CDT [facility] SAMPLE EXPIRATION 03/21/2025,2 359 03/18/2025 1:10 PM CDT [facility] 03/18/2025 11:5 6 AM CDT us Peri Jaquez MD BLOOD BANK TEST ORDERABLES Final Result [facility] [address] [place] [address], [place] [phone] * PROTIME/INR, VENOUS (03/18/2025 11:56 AM CDT) PROTIME 12.9 10.2 - 12.9 SEC 03/18/2025 12:46 PM CDT [facility] INR 1.1 03/18/2025 12:46 PM CDT [facility] Comment: Recommended INR Therapeutic Goals: 2.0-3.0 Routine Therapy 2.5-3.5 Mechanical Prosthetic Valves (High Risk) 03/18/2025 11:5 6 AM CDT us Peri Jaquez MD LABORATORY Final Resul t [facility] [address] [place] [address], [place] [phone] * (ABNORMAL) BASIC METABOLIC PANEL (03/18/2025 11:56 AM CDT) GLUCOSE 108(H) 70 - 99 MG/DL 03/18/2025 12:41 PM CDT [facility] BUN 25(H) 7 - 18 MG/DL 03/18/2025 12:41 PM CDT [facility] CREATININE S/P/B 1.52(H) 0.55 - 1.02 MG/DL 03/18/2025 12:41 PM CDT [facility] SODIUM S/P/B 141 136 - 145 MMOL/L 03/18/2025 12:41 PM CDT [facility] POTASSIUM S/P/B 4.5 3.5 - 5.1 MMOL/L 03/18/2025 12:41 PM CDT [facility] CHLORIDE S/P/B 108 97 - 115 MMOL/L 03/18/2025 12:41 PM CDT [facility] CO2 27.1 21 - 32 MMOL/L 03/18/2025 12:41 PM CDT [facility] CALCIUM S/P/B 9.5 8.5 - 10.1 MG/DL 03/18/2025 12:41 PM CDT [facility] ANION GAP 5.9 2 - 10 MMOL/L 03/18/2025 12:41 PM CDT [facility] BUN CREATININE RATIO 16.4 6 - 26 03/18/2025 12:41 PM CDT [facility] GFR ESTIMATE 34(L) >90 ML/MIN/1.7 3 M2 03/18/2025 12:41 PM CDT [facility] Comment: NOTE: eGFR is not calculated for patients <18 years of age or gender unknown. This is an estimated GFR calculation using the new CKD EPI creatinine equation without race and so does not require a correction factor for race. This estimated GFR should not be used for calculating drug doses. 03/18/2025 11:5 6 AM CDT us Peri Jaquez MD LABORATORY Final Resul t [facility] [address] [place] [address], * (ABNORMAL) CBC W/DIFF AUTOMATED (03/18/2025 11:56 AM CDT) WBC 9.48 4.5 - 11.0 x10'3/uL 03/18/2025 12:20 PM CDT [facility] RBC 4.48 4.20 - 5.40 x10'6/uL 03/18/2025 12:20 PM CDT [facility] HGB 13.0 12.0 - 16.0 G/DL 03/18/2025 12:20 PM CDT [facility] HCT 40.3 38.0 - 48.0 % 03/18/2025 12:20 PM CDT [facility] MCV 90.0 81.0 - 99.0 FL 03/18/2025 12:20 PM CDT [facility] MCH 29.0 27.0 - 31.0 PG 03/18/2025 12:20 PM CDT [facility] MCHC 32.3 32.0 - 36.0 G/DL 03/18/2025 12:20 PM CDT [facility] RDW 13.2 11.5 - 14.5 % 03/18/2025 12:20 PM CDT [facility] PLT 282 130 - 400 x10'3/uL 03/18/2025 12:20 PM CDT [facility] MPV 10.0 9.3 - 12.2 FL 03/18/2025 12:20 PM CDT [facility] DIFFERENTIAL TYPE AUTOMATED DIFFERENTIAL 03/18/2025 12:20 PM CDT [facility] NEUTROPHILS % 58.3 % 03/18/2025 12:20 PM CDT [facility] LYMPHOCYTES % 28.0 % 03/18/2025 12:20 PM CDT [facility] MONOCYTES % 10.8 % 03/18/2025 12:20 PM CDT [facility] EOSINOPHILS 1.7 % 03/18/2025 12:20 PM CDT [facility] BASOPHILS 0.9 % 03/18/2025 12:20 PM CDT [facility] IMMATURE GRANS % 0.3 % 03/18/20 12:20 PM CDT [facility] ABS. NEUTROPHILS 5.53 1.80 - 7.70 x10'3/uL 03/18/2025 12:20 PM CDT [facility] ABS. LYMPHOCYTES 2.65 1.00 - 4.80 x10'3/uL 03/18/2025 12:20 PM CDT [facility] ABS. MONOCYTES 1.02(H) 0.24 - 0.86 x10'3/uL 03/18/2025 12:20 PM CDT [facility] ABS. EOSINOPHILS 0.16 0.04 - 0.36 x10'3/uL 03/18/2025 12:20 PM CDT [facility] ABS. BASOPHILS 0.09(H) 0.01 - 0.08 x10'3/uL 03/18/2025 12:20 PM CDT [facility] ABS. IMMATURE GRANULOCYTES 0.03 0.00 - 0.49 x10'3/uL 03/18/2025 12:20 PM CDT [facility] 03/18/2025 11:5 6 AM CDT us Peri Jaquez MD LABORATORY Final Resul t [facility] [address] [place] [address], from Last [address] [place] [address] [place] [address] [facility] Advance Directives * Full Code (Latest Code Status on File) Date Activated Date Inactivated Comments 03/18/2025 6:20 PM 03/18/2025 8:58 PM Care Teams Carry In Worker Relationship Specialty Start Date End Date Ajit Blackwood MD [address] [place] [address] PCP - General FAMILY PRACTICE 01/05/25 William Márquez DO [address] [place] [address] CARDIOLOGY 01/02/25
--- OUTSIDE RECORDS SUMMARY | 2025-05-17 10:20 | XMS_ITS | Encounter Summary ---
Author Organization [facility] Address [address] [place] [address] Care Team Providers Care Customer Sales Representative Name Role Phone William Márquez DO Unavailable Ajit Blackwood MD Primary Care Provider [phone] Encounter Details Date Type Department Care Team (Late st Contact Info) Description 03/18/2025 Results Follow-Up [facility] [address] Masha Garcia RN BASIC METABOLIC PANEL, CBC W/DIFF AUTOMATED, PROTIME/INR, VENOUS Social History Tobacco Use Types Packs/Day Years Used Date Smoking Tobacco: Never Smokeless Tobacco: Never Alcohol Use Standard Drinks/Week Comments Not Currently 0 (1 standard drink = 0.6 oz pur e alcohol) Comments Unknown Sex and Gender Information Value Date Recorded Sex Assigned at Not on file Legal Sex Female 10:46 AM WEAVER NEEDLE LOOM Gender Identity Not on file Sexual Orientation Not on file documented as of this encounter Functional Status * Calculated C-SSRS Risk Score (Lifetime/Recent) Answer Date of Assessment Author Status No Risk Indicated 03/18/2025 12:28 PM Mohnii Pabon RN Active * [place] Suicide Severity Rating Scale (Screener/Recent Self-Report) Question Answer Date of Assessment Author Status 1. Wish to be (Past 1 Month) No 03/18/2025 12:28 PM Mohini Pabon RN Activ e 2. Non-Specific Active Suicidal Thoughts (Past 1 Month) No 03/18/2025 12:28 PM CDT Mohini Valentino RN Activ e 6. Suicidal Behavior (Lifetime) No 03/18/2025 12:28 PM CDT Mohini Valentino RN Activ e documented as of this encounter Plan of Treatment Upcoming Encounters Date Type Department Care Team (Late st Contact Info) Description 07/01/2025 10:45 AM CDT Telephone [facility], [facility] [address] [place] [address] Sherrell Waldron PA 3 [facility] [address] [place] [address] 08/11/2025 11:15 AM WEAVER NEEDLE LOOM Office Visit [facility] [address] [place] [address] Sherrell Waldron PA [address] [facility] [address] [place] [address] 08/19/2025 12:00 PM WEAVER NEEDLE LOOM Appointment [employer] Clerk [address] [facility] [place] [address] Candido Neal MD Three [facility]. [facility] [address] [place] [address] documented as of this encounter Visit Diagnoses Not on filedocumented in this encounter Care Teams Customer Sales Representative Relationship Specialty Start Date End Date Ajit Blackwood MD [address] [place] [address] PCP - General FAMILY PRACTICE 01/05/25 William Márquez DO [address] [place] [address] CARDIOLOGY 01/02/25 documented as of this encounter
--- OUTSIDE RECORDS SUMMARY | 2025-05-17 10:20 | XMS_ITS | Clinical Summary ---
Author Organization [facility] Address [address] [place] [address] Care Team Providers Care Poultry Process Worker Name Role Phone Ajit Blackwood MD Primary Care Provider [phone] Source Comments [facility],non-owned Affiliates and Associated Physician Practices is amultiple site organization consisting of ambulatory clinics and hospital sitesin [place], [place], [place] and [place]. This disclosure is being madepursuant to the Care Everywhere program and may not contain all information available regarding this patient. Last updated 18.[facility] Immunizations Immunization Administration Dates Next Due INFLUENZA VACCINE, HIGH-DOSE , QUADR. (FLUZONE HIGH-DOSE QUADRIVALENT; 65Y+), 0.7 ML (HD-IIV4) 07/27/2017,08/08/2016 Social History Tobacco Use Types Packs/Day Years Used Date Smoking Tobacco: Never Assessed Comments Unknown Sex and Gender Information Value Date Recorded Sex Assigned at Not on file Legal Sex Female 6:56 AM LOCKER ATTENDANT Gender Identity Not on file Sexual Orientation Not on file Plan of Treatment Health Maintenance Due Date Last Done Comments BONE DENSITY TESTING 1940 DTAP/TDAP/TD VACCINES (1 - Tdap) 1960 PNEUMOCOCCAL VACCINE 50+ (1 of 1 - PCV) 1991 ZOSTER VACCINE (1 of 2) 1991 Respiratory Syncytial Virus (RSV) Vaccine Pt: or over 60 yrs (1 - 1-dose 75+ series) 2016 COVID-19 VACCINE ( - 2023-2 5 season) 2024 DEPRESSION SCREENING 10/01/2024 INFLUENZA VACCINE (#1) 2025 7, 08/08/2016 HEPATITIS B VACCINE Aged Out No longe r eligible based on patient's age to complete this topic HIB VACCINE Aged Out No longer eligi ble based on patient's age to complete this topic HPV VACCINE Aged Out No longer eligi ble based on patient's age to complete this topic MENINGOCOCCAL (Group B) VACCINE SHARED DECISION-MAKING Aged Out No longer eligible based on patient's age to complete this topic MENINGOCOCCAL GROUPS A/C/Y/W VACCINE Aged Out No longer eligible b ased on patient's age to complete this topic Insurance [facility] MANAGED MEDICARE ADV Care Teams Poultry Process Worker Relationship Specialty Start Date End Date Ajit Blackwood MD [address] [place] [address] PCP - General Family Medicine 08/08/16
--- OUTSIDE RECORDS SUMMARY | 2025-05-17 10:20 | XMS_ITS | Encounter Summary ---
Author Organization [facility] Address [address] [place] [address] Care Team Providers Care Wolf Hunter Name Role Phone William Márquez DO Unavailable Ajit Blackwood MD Primary Care Provider [phone] Encounter Details Date Type Department Care Team (Late Contact Info) Description 05/05/2025 Abstract [facility] [address] [id number] Cristino Solis MA Social History Tobacco Use Types Packs/Day Years Used Date Smoking Tobacco: Never Smokeless Tobacco: Never Alcohol Use Standard Drinks/Week Comments Not Currently 0 (1 standard drink = 0.6 oz pur e alcohol) Comments No Sex and Gender Information Value Date Recorded Sex Assigned at Not on file Legal Sex Female 10:46 AM AUTO PARTS CLERK Gender Identity Not on file Sexual Orientation Not on file documented as of this encounter Plan of Treatment Upcoming Encounters Date Type Department Care Team (Late Contact Info) Description 07/01/2025 10:45 AM CDT Telephone [facility] [address] [place], [place] [phone] Sherrell Waldron PA 3 [facility] [address] [place], [place] [address] 08/11/2025 11:15 AM AUTO PARTS CLERK Office Visit [facility] [address] [place] [address] Sherrell Waldron PA 3 [facility] [address] [place] [address] 08/19/2025 12:00 PM AUTO PARTS CLERK Appointment [place] T[employer] [facility] [place] [address] Candido Neal MD Three [facility]. [address] [place], [place] [address] documented as of this encounter Procedures Procedure Name Priority Date/Time Associated Diagnosis Comments TSH (OUTSIDE LAB) Routine 05/04/2025 HEPATIC FUNCTION PANEL Routine 05/04/2025 THYROXINE, FREE (FT4) Routine 05/04/2025 documented in this encounter Results * HEPATIC FUNCTION PANEL (05/04/2025) Pathologist [facility] ALBUMIN S/P/B 4.7 3.5 - 5.0 ALKALINE PHOSPHATASE S/P/B 69 ALT 11 AST 21 BILIRUBIN DIRECT S/P/B 0.19 BILIRUBIN TOTAL S/P/B 0.6 TOTAL PROTEIN S/P/B 6.6 05/04/2025 us Default History Genericprovider LABORATORY Final Result * TSH (OUTSIDE LAB) (05/04/2025) TSH 1.180 05/04/2025 us Default History Genericprovider LAB-OUTSIDE/ABST RACTED Final Result * THYROXINE, FREE (FT4) (05/04/2025) FREE T4 1.50 05/04/2025 us Default History Genericprovider LABORATORY Final Result documented in this encounter Visit Diagnoses Not on filedocumented in this encounter Care Teams Wolf Hunter Relationship Specialty Start Date End Date Ajit Blackwood MD [address] [place] [address] PCP - General FAMILY PRACTICE 01/05/25 William Márquez DO [address] [place] [address] CARDIOLOGY 01/02/25 documented as of this encounter
[2025-05-17 10:45] VITALS: BP 145/65; PULSE 80; RESP 14; O2SAT 97
--- OUTSIDE RECORDS SUMMARY | 2025-05-17 10:47 | XMS_ITS | Clinical Summary ---
Author Organization [facility] Address [facility] [place] [address] Care Team Providers Care Carpenter Mine Name Role Phone William Márquez DO Unavailable Ajit Blackwood MD Primary Care Provider [phone] Allergies Active Allergy Reactions Criticality Noted Date [...] Department Care Team Description 05/11/2025 Orders Only [facility], [address] [id number] Peri Jaquez MD 05/07/2025 Telephone [facility], [address] [address] Peri Jaquez MD Schedule Procedure 05/05/2025 Results Follow-Up [facility], [address] [address] Masha Garcia RN THYROXINE, FREE (FT4), HEPATIC FUNCTION PANEL 05/05/2025 Abstract [facility] THREE [facility], [address] [address] Cristino Solis MA 05/04/2025 12:15 PM CDT Office Visit [facility] [address] [address] Sherrell Waldron PA Follow Up (PVC abl) 05/04/2025 Travel 03/18/2025 2:19 PM CDT Anesthesia Event [facility] [place] [address] Maty Mckee MD 03/18/2025 11:50 AM CDT - 03/18/2025 6:58 PM CDT Hospital Encounter [facility] [place] [address] Peri Jaquez MD Schuessler, Martha E, MD Discharge Disposition: Home or Self Care (Routine Discharge) 03/18/2025 Results Follow-Up [facility] THREE [address] [address] Masha Garcia RN BASIC METABOLIC PANEL, CBC W/DIFF AUTOMATED, PROTIME/INR, VENOUS 03/18/2025 Travel 03/17/2025 Telephone [facility] [address] [address] Peri Jaquez MD Information ([facility] Cardiovascular-Dr William Márquez) 02/27/2025 Orders Only [facility] [address], [place] [address] [place] [address] Peri Jaquez MD 02/26/2025 2:45 PM CDT Office Visit [facility] [address], [place] [address] [place] [address] Peri Jaquez MD Arrhythmia (New Consult ) [...] on file Legal Sex Female 10:46 AM SALON ASSISTANT Gender Identity Not on file Sexual Orientation [...] AM CDT Telephone [facility], [place] [address] [place] [address] Sherrell Waldron PA 3 [facility] [address] [place] [address] 08/11/2025 11:15 AM SALON ASSISTANT Office Visit [facility], [place] [address] [place] [address] Sherrell Waldron PA 3 [facility] [address] [place] [address] 08/19/2025 12:00 PM SALON ASSISTANT Appointment [facility] Professor Criminal Justice ONE [facility] [place] [address] Peri Jaquez MD Three [facility]. [address] [place] [address] Health Maintenance Due Date Last Done Comments [...] - 05/04/2025 9:07 PM CDT Jenna Garcia [facility] Test Date: 2025-05-04 Pat Name: LOREN LOGAN Department: 112 Room: Gender: Female Paste Mixing Supervisor: : 1940 Requested By: PERI JAQUEZ Order Number: [id number] Reading MD: Peri Jaquez Measurements Intervals Mcdonald Rate: 79 P: 55 FL: 162 QRS: 4 QRSD: 75 T: 66 QT: 375 QTc: 430 Interpretive Statements SINUS RHYTHM WITH FREQUENT VENTRICULAR PREMATURE COMPLEXES POSSIBLE LEFT ATRIAL ENLARGEMENT NONSPECIFIC ST & T-WAVE ABNORMALITY ABNORMAL RHYTHM ECG Procedure Note Peri Jaquez MD - 05/04/2025 Jenna Garcia [facility] Test Date: 2025-05-04 Pat Name: LOREN LOGAN Department: 112 Room: Gender: Female Paste Mixing Supervisor: : 1940 Requested By: PERI JAQUEZ Order Number: [id number] Reading MD: Peri Jaquez Measurements Intervals Mcdonald Rate: 79 P: 55 FL: 162 QRS: 4 QRSD: 75 T: 66 [...] PM CDT) 03/18/2025 4:32 PM CDT Narrative [facility] ([facility]) RAD - 03/19/2025 6:18 AM CDT [place] [address] Test Date: 2025-03-18 Pat Name: LOREN BOSS Department: 40 Room: [facility] Gender: Female Paste Mixing Supervisor: : 1940 Requested By: PERI JAQUEZ Order Number: [id number] Reading MD: Flo Barker Measurements Intervals Mcdonald Rate: 77 P: 40 FL: 152 QRS: -19 QRSD: 89 T: 140 QT: 408 QTc: 462 Interpretive Statements SINUS RHYTHM WITH FREQUENT VENTRICULAR PREMATURE COMPLEXES IN A BIGEMINAL PATTERN ST DEVIATION AND MODERATE T-WAVE ABNORMALITY, CONSIDER LATERAL ISCHEMIA [-0.1+ mV T-WAVE IN I/aVL/V5/V6] Compared to ECG 02/26/2025 15:10:42 Frequent PVCs now present Procedure Note Flo Barker MD - 03/19/[address] Test Date: 2025-03-18 Pat Name: LOREN BOSS Department: 40 Room: [facility] Gender: Female Paste Mixing Supervisor: : 1940 Requested By: PERI JAQUEZ Order Number: [id number] Reading MD: Flo Barker Measurements Intervals Mcdonald Rate: 77 P: 40 FL: 152 QRS: -19 QRSD: 89 T: 140 QT: 408 QTc: 462 Interpretive Statements SINUS RHYTHM WITH FREQUENT VENTRICULAR PREMATURE COMPLEXES IN ABIGEMINAL PATTERN ST DEVIATION AND MODERATE T-WAVE ABNORMALITY, CONSIDER LATERAL ISCHEMIA [-0.1+ mV T-WAVE IN I/aVL/V5/V6] Compared to ECG 02/26/2025 15:10:42 Frequent PVCs now present us Peri Jaquez MD ECG ORDERABLES Final Resul t [facility] ([facility]) RAD * XA PVC ABLATION (03/18/2025 4:12 PM CDT) Anatomical Region Laterality Modality Cardiac Professor Criminal Justice Narrative 03/28/2025 7:33 AM CDT [facility] Cardiac Catheterization/EP Lab [phone] PVC Ablation Patient's Name: Loren Boss Date of : 1940 Medical Record: #[id number] Account: #[id number] Physician: Peri Jaquez MD Date: 03/18/2025 Procedure: [...] was performed through a Vizigo sheath and [place] RF needle. The sheath was advanced across [...] 03/19/25 Transcribed: 03/23/25 us Peri Jaquez MD STRIP STAMP STRAIGHTENER Final Resul t * (ABNORMAL) POCT ACTIVATED CLOTTING TIME - ISTAT DOCKED DEVICE (03/18/2025 3:42 PM CDT) Only the most recent of2 resultswithin the time period is included. ACTIVATED CLOTTING TIME (ACT) 259(H) 74 - 125 SEC 03/18/2025 3:46 PM CDT [facility] CAMPAIGN ASSOCIATE CODE 398 03/18/2025 3:46 PM CDT [facility] 03/18/2025 3:42 PM CDT Peri Jaquez MD POCT ORDERABLES - DEVICE Fi nal Result Performing Organization Address [facility]/ZIP Co de Phone Number [facility] [address] [place] [address], [place] [phone] * TYPE & SCREEN (03/18/2025 11:56 AM CDT) Pathologist [facility] ABO/RH A POSITIVE 03/18/2025 1:10 PM CDT [facility] ANTIBODY SCREEN NEGATIVE 03/18/2025 1:10 PM CDT [facility] SAMPLE EXPIRATION 03/21/2025,2 359 03/18/2025 1:10 PM CDT [facility] 03/18/2025 11:5 6 AM CDT us Peri Jaquez MD BLOOD BANK TEST ORDERABLES Final Result [facility] [address] [place] [address], [place] [phone] * PROTIME/INR, VENOUS (03/18/2025 11:56 AM CDT) PROTIME 12.9 10.2 - 12.9 SEC 03/18/2025 12:46 PM CDT [facility] INR 1.1 03/18/2025 12:46 PM CDT [facility] Comment: Recommended INR Therapeutic Goals: 2.0-3.0 Routine Therapy 2.5-3.5 Mechanical Prosthetic Valves (High Risk) 03/18/2025 11:5 6 AM CDT us Peri Jaquez MD LABORATORY Final Resul t [facility] [address] [place] [address], [place] [phone] * (ABNORMAL) BASIC METABOLIC PANEL (03/18/2025 11:56 AM CDT) GLUCOSE 108(H) 70 - 99 MG/DL 03/18/2025 12:41 PM CDT [facility] BUN 25(H) 7 - 18 MG/DL 03/18/2025 12:41 PM CDT [facility] CREATININE S/P/B 1.52(H) 0.55 - 1.02 MG/DL 03/18/2025 12:41 PM CDT [facility] SODIUM S/P/B 141 136 - 145 MMOL/L 03/18/2025 12:41 PM CDT [facility] POTASSIUM S/P/B 4.5 3.5 - 5.1 MMOL/L 03/18/2025 12:41 PM CDT [facility] CHLORIDE S/P/B 108 97 - 115 MMOL/L 03/18/2025 12:41 PM CDT [facility] CO2 27.1 21 - 32 MMOL/L 03/18/2025 12:41 PM CDT [facility] CALCIUM S/P/B 9.5 8.5 - 10.1 MG/DL 03/18/2025 12:41 PM CDT [facility] ANION GAP 5.9 2 - 10 MMOL/L 03/18/2025 12:41 PM CDT [facility] BUN CREATININE RATIO 16.4 6 - 26 03/18/2025 12:41 PM CDT [facility] GFR ESTIMATE 34(L) >90 ML/MIN/1.7 3 M2 03/18/2025 12:41 PM CDT [facility] Comment: NOTE: eGFR is not [...] Peri Jaquez MD LABORATORY Final Resul t [facility] [address] [place] [address], * (ABNORMAL) CBC W/DIFF AUTOMATED (03/18/2025 11:56 AM CDT) WBC 9.48 4.5 - 11.0 x10'3/uL 03/18/2025 12:20 PM CDT [facility] RBC 4.48 4.20 - 5.40 x10'6/uL 03/18/2025 12:20 PM CDT [facility] HGB 13.0 12.0 - 16.0 G/DL 03/18/2025 12:20 PM CDT [facility] HCT 40.3 38.0 - 48.0 % 03/18/2025 12:20 PM CDT [facility] MCV 90.0 81.0 - 99.0 FL 03/18/2025 12:20 PM CDT [facility] MCH 29.0 27.0 - 31.0 PG 03/18/2025 12:20 PM CDT [facility] MCHC 32.3 32.0 - 36.0 G/DL 03/18/2025 12:20 PM CDT [facility] RDW 13.2 11.5 - 14.5 % 03/18/2025 12:20 PM CDT [facility] PLT 282 130 - 400 x10'3/uL 03/18/2025 12:20 PM CDT [facility] MPV 10.0 9.3 - 12.2 FL 03/18/2025 12:20 PM CDT [facility] DIFFERENTIAL TYPE AUTOMATED DIFFERENTIAL 03/18/2025 12:20 PM CDT [facility] NEUTROPHILS % 58.3 % 03/18/2025 12:20 PM CDT [facility] LYMPHOCYTES % 28.0 % 03/18/2025 12:20 PM CDT [facility] MONOCYTES % 10.8 % 03/18/2025 12:20 PM CDT [facility] EOSINOPHILS 1.7 % 03/18/2025 12:20 PM CDT [facility] BASOPHILS 0.9 % 03/18/2025 12:20 PM CDT [facility] IMMATURE GRANS % 0.3 % 03/18/20 12:20 PM CDT [facility] ABS. NEUTROPHILS 5.53 1.80 - 7.70 x10'3/uL 03/18/2025 12:20 PM CDT [facility] ABS. LYMPHOCYTES 2.65 1.00 - 4.80 x10'3/uL 03/18/2025 12:20 PM CDT [facility] ABS. MONOCYTES 1.02(H) 0.24 - 0.86 x10'3/uL 03/18/2025 12:20 PM CDT [facility] ABS. EOSINOPHILS 0.16 0.04 - 0.36 x10'3/uL 03/18/2025 12:20 PM CDT [facility] ABS. BASOPHILS 0.09(H) 0.01 - 0.08 x10'3/uL 03/18/2025 12:20 PM CDT [facility] ABS. IMMATURE GRANULOCYTES 0.03 0.00 - 0.49 x10'3/uL 03/18/2025 12:20 PM CDT [facility] 03/18/2025 11:5 6 AM CDT us Peri Jaquez MD LABORATORY Final Resul t [facility] [address] [place] [address], from Last [address] [place] [address] [facility] Advance Directives * Full Code (Latest Code Status on File) Date Activated Date Inactivated Comments 03/18/2025 6:20 PM 03/18/2025 8:58 PM Care Teams Carpenter Mine Relationship Specialty Start Date End Date Ajit Blackwood MD [address] [place] [address] PCP - General FAMILY PRACTICE 01/05/25 William Márquez DO [address] [place] [address] CARDIOLOGY 01/02/25
--- OUTSIDE RECORDS SUMMARY | 2025-05-17 10:47 | XMS_ITS | Encounter Summary ---
Author Organization [facility] Address [address] [place] [address] Care Team Providers Care Civil Service Worker Name Role Phone William Márquez DO Unavailable Ajit Blackwood MD Primary Care Provider [phone] Encounter Details Date Type Department Care Team (Late st Contact Info) Description 03/18/2025 Results Follow-Up [facility] [address] Masha Garcia RN BASIC METABOLIC PANEL, CBC W/DIFF AUTOMATED, PROTIME/INR, VENOUS Social History Tobacco Use Types Packs/Day Years Used Date Smoking Tobacco: Never Smokeless Tobacco: Never Alcohol Use Standard Drinks/Week Comments Not Currently 0 (1 standard drink = 0.6 oz pur e alcohol) Comments Unknown Sex and Gender Information Value Date Recorded Sex Assigned at Not on file Legal Sex Female 10:46 AM WASH DRILLER HELPER Gender Identity Not on file Sexual Orientation Not on file documented as of this encounter Functional Status * Calculated C-SSRS Risk Score (Lifetime/Recent) Answer Date of Assessment Author Status No Risk Indicated 03/18/2025 12:28 PM Mohini Pabon RN Active * [place] Suicide Severity Rating Scale (Screener/Recent Self-Report) Question [...] Info) Description 07/01/2025 10:45 AM CDT Telephone [facility] THREE [facility] [address] [place] [address] Sherrell Waldron PA 3 [facility] [address] [place] [address] 08/11/2025 11:15 AM WASH DRILLER HELPER Office Visit [facility] [address] [place] [address] Sherrell Waldron PA 3 [facility] [address] [place] [address] 08/19/2025 12:00 PM WASH DRILLER HELPER Appointment [employer] Cutter [address] [facility] [place] [address] Candido Neal MD Three [facility]. [facility] [address] [place] [address] documented as of this encounter Visit Diagnoses Not on filedocumented in this encounter Care Teams Civil Service Worker Relationship Specialty Start Date End Date Ajit Blackwood MD [address] [place] [address] PCP - General FAMILY PRACTICE 01/05/25 William Márquez DO [address] [place] [address] CARDIOLOGY 01/02/25 documented as of this encounter
--- OUTSIDE RECORDS SUMMARY | 2025-05-17 10:47 | XMS_ITS | Clinical Summary ---
Author Organization [facility] Address [address] [place] [address] Care Team Providers Care Machinist Mechanic Name Role Phone Ajit Blackwood MD Primary Care Provider [phone] Source Comments [facility],non-owned Affiliates and Associated Physician Practices is amultiple site organization consisting of ambulatory clinics and hospital sitesin [place], [place], [place] and [place]. This disclosure is being madepursuant to the Care Everywhere program and may not contain all information available regarding this patient. Last updated 18.[facility] Immunizations Immunization Administration Dates Next Due INFLUENZA VACCINE, HIGH-DOSE , QUADR. (FLUZONE HIGH-DOSE QUADRIVALENT; 65Y+), 0.7 ML (HD-IIV4) 07/27/2017,08/08/2016 Social History Tobacco Use Types Packs/Day Years Used Date Smoking Tobacco: Never Assessed Comments Unknown Sex and Gender Information Value Date Recorded Sex Assigned at Not on file Legal Sex Female 6:56 AM REFURBISH TECHNICIAN Gender Identity Not on file Sexual Orientation [...] patient's age to complete this topic Insurance [facility] MANAGED MEDICARE ADV Care Teams Machinist Mechanic Relationship Specialty Start Date End Date Ajit Blackwood MD [address] [place] [address] PCP - General Family Medicine 08/08/16
--- OUTSIDE RECORDS SUMMARY | 2025-05-17 10:47 | XMS_ITS | Encounter Summary ---
Author Organization [facility] Address [address] [place] [address] Care Team Providers Care Phonograph Cartridge Assembler Name Role Phone William Márquez DO Unavailable Ajit Blackwood MD Primary Care Provider [phone] Encounter Details Date Type Department Care Team (Late Contact Info) Description 05/05/2025 Abstract [facility] [address] [id number] Cristino Solis MA Social History Tobacco Use Types Packs/Day Years Used Date Smoking Tobacco: Never Smokeless Tobacco: Never Alcohol Use Standard Drinks/Week Comments Not Currently 0 (1 standard drink = 0.6 oz pur e alcohol) Comments No Sex and Gender Information Value Date Recorded Sex Assigned at Not on file Legal Sex Female 10:46 AM INSPECTION AND TESTING SUPERVISOR Gender Identity Not on file Sexual Orientation Not on file documented as of this encounter Plan of Treatment Upcoming Encounters Date Type Department Care Team (Late Contact Info) Description 07/01/2025 10:45 AM CDT Telephone [facility] [address] [place], [place] [id number] Sherrell Waldron PA 3 [facility] [address] [place], [place] [address] 08/11/2025 11:15 AM INSPECTION AND TESTING SUPERVISOR Office Visit [facility] [address] [place] [address] Sherrell Waldron PA 3 [facility] [address] [place] [address] 08/19/2025 12:00 PM INSPECTION AND TESTING SUPERVISOR Appointment [place]'s Dog Daycare Provider [address] [facility] [place] [address] Candido Neal MD Three [facility]. [address] [place], [place] [address] documented as of this encounter Procedures Procedure Name Priority Date/Time Associated Diagnosis Comments TSH (OUTSIDE LAB) Routine 05/04/2025 HEPATIC FUNCTION PANEL Routine 05/04/2025 THYROXINE, FREE (FT4) Routine 05/04/2025 documented in this encounter Results * HEPATIC FUNCTION PANEL (05/04/2025) Pathologist [facility] [place] ALBUMIN S/P/B 4.7 3.5 - 5.0 ALKALINE [...] on filedocumented in this encounter Care Teams Phonograph Cartridge Assembler Relationship Specialty Start Date End Date Ajit Blackwood MD [address] [place] [address] PCP - General FAMILY PRACTICE 01/05/25 William Márquez DO [address] [place] [address] CARDIOLOGY 01/02/25 documented as of this encounter
[2025-05-17 11:06] VITALS: BP 138/54; PULSE 77; RESP 16; O2SAT 96
[2025-05-17 11:32] VITALS: BP 151/56; PULSE 81; RESP 17; O2SAT 97
[2025-05-17] MEDS: KETOROLAC 30 MG/ML VIAL (*BKC) IM (11:42)
[2025-05-17] MEDS: HYDROcodone/acetaminophen (*CRX) 5-325 MG TABLET 1 TAB PO (11:42)
--- NOTE | 2025-05-17 11:59 | ED.GENADULT ---
HPI - General Adult General Chief complaint: Extremity Problem,Nontraumatic Stated complaint: I think my hip's out of place. pt. ambulatory Time Seen by Provider: 05/17/25 10:38 History of Present Illness HPI narrative: Patient is an 84-year-old female who presents ER with pain in her right hip. Worsening over last 2-3 days. Taking [id number]-[id number] medications without improvement. No known injury. Feels pain radiate from hip down into her thigh. No numbness or tingling. She maintains full range of motion. Related Data Allergies Allergy/AdvReac Type Severity Reaction Status Date / Time ciprofloxacin Allergy Unknown Unknown Verified 05/17/25 10:25 Sulfa (Sulfonamide Allergy Unknown Unknown Verified 05/17/25 10:25 Antibiotics) Review of Systems Review of Systems: All systems reviewed & are unremarkable except as noted in HPI and below Constitutional: Constitutional: Reports no additional constitutional complaints Musculoskeletal: Musculoskeletal: Reports no additional musculoskeletal complaints Neurologic: Reports system reviewed and no additional complaints, except as documented PMFSH Past Medical History Medical History Vitamin D deficiency IFG (impaired fasting glucose) Chronic low back pain HTN (hypertension) Social History Social History Smoking status: Never smoker Second hand tobacco smoke exposure: No Alcohol intake: never Substance use: never Do You Feel Safe in your Home?: Yes Lack of Transportation: No Lack of Food: Never True Current Housing: I Have Housing Concerned About Future Housing: No Difficulty Paying Gas/Electric Bills: No Difficulty Paying for Meds: No Currently Unemployed: No Education: Associate Degree Difficulty w/ Childcare or Family Care: No Living arrangements: alone Occupation/Education: retired Gender identity (if verbalized by the patient): Female Sexual Orientation (if Verbalized by the Patient): Straight or Heterosexual Spiritual care concerns: No Exam Narrative: GENERAL: Well-appearing, well-nourished, and in no acute distress. HEAD: Normocephalic, atraumatic. ENT: Mucous membranes moist. CHEST: Clear to auscultation. No respiratory distress. HEART: Regular rate and rhythm. Normal peripheral pulses. EXTREMITIES: Normal range of motion. No edema. No reproducible tenderness the right hip/thigh/low back. SKIN: Warm, dry, no rash. NEURO: Alert and oriented x3. PSYCH: Normal mood and affect. Course Course Emergency Course: Informed of imaging results. Discussed care at home with anti-inflammatories muscle relaxers. Follow-up with PCP. Have sciatica. 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 Vital Signs Vital signs: Vital Signs Temperature 97.6 F 05/17/25 10:19 Pulse Rate 93 05/17/25 10:19 Respiratory Rate 20 05/17/25 10:19 Blood Pressure 166/56 H 05/17/25 10:19 Pulse Oximetry 98 05/17/25 10:19 Oxygen Delivery Room Air 05/17/25 10:19 Temperature 97.6 F 05/17/25 10:19 Pulse Rate 77 05/17/25 11:06 Respiratory Rate 16 05/17/25 11:06 Blood Pressure 138/54 L 05/17/25 11:06 Pulse Oximetry 96 05/17/25 11:06 Oxygen Delivery Room Air 05/17/25 10:19 Medical Decision Making Vital Signs Vital Signs: Vital Signs Temperature 97.6 F 05/17/25 10:19 Pulse Rate 93 05/17/25 10:19 Respiratory Rate 20 05/17/25 10:19 Blood Pressure 166/56 H 05/17/25 10:19 Pulse Oximetry 98 05/17/25 10:19 Oxygen Delivery Room Air 05/17/25 10:19 Temperature 97.6 F 05/17/25 10:19 Pulse Rate 77 05/17/25 11:06 Respiratory Rate 16 05/17/25 11:06 Blood Pressure 138/54 L 05/17/25 11:06 Pulse Oximetry 96 05/17/25 11:06 Oxygen Delivery Room Air 05/17/25 10:19 Imaging Data Radiologist's impression: ITS Impressions Hip/Pelvis X-Ray 05/17/25 11:16 Impression: 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 Discharge Plan Discharge Clinical Impression: Sciatica Patient Disposition: Home Condition: Stable Instructions: Sciatica (ED) Additional Instructions: Please return to the emergency department if you develop severe pain that is not controlled by pain medications or if you are unable to walk because of pain or weakness. Return to the emergency department immediately if you develop fevers, loss of bowel or bladder control (dribbling of urine or having accidents you wouldn't normally have), inability to urinate, numbness of your genital or anal area, or weakness/numbness of your legs or arms as these could all be signs of a serious medical emergency. Patient Language: Azeri Prescriptions: New naproxen 375 mg tablet 375 mg PO BID Qty: 14 0RF tizanidine 2 mg capsule 2 mg PO Q8H PRN (Reason: muscle spasticity) Qty: 14 0RF No Action metoprolol succinate 25 mg tablet extended release 24 hr See Rx Instructions .ROUTE .COMPLEX Qty: 30 5RF Dose Instruction: TAKE 1 TABLET BY MOUTH DAILY Rx Instructions: TAKE 1 TABLET BY MOUTH DAILY amlodipine 5 mg tablet 5 mg PO DAILY Qty: 90 2RF Follow-up/Referrals: Ajit Blackwood MD [Primary Care Provider] - 1 Week
[2025-05-17 12:02] VITALS: BP 137/63; PULSE 83; RESP 18; O2SAT 98
[2025-05-17 12:32] VITALS: BP 152/53; PULSE 82; RESP 19; O2SAT 99
== END 2025-05-17 12:41 | disposition home or self-care (01) ==
PROVIDERS: Emergency Provider Emergency Medicine; PCP Family Medicine
DX: M54.31 Sciatica, right side (principal); E55.9 Vitamin D deficiency, unspecified; G89.29 Other chronic pain; M54.50 Low back pain, unspecified; I10 Essential (primary) hypertension
CPT/HCPCS: 73502; 96372; 99283; A9270; J1885

== ENCOUNTER 2025-06-24 10:33 | Outpatient (CLI) | payer MEDICARE, SELFPAY ==
--- NOTE | ~2025-06-24 | XR_ITS ---
EXAMINATION: XR chest 2V, 06/24/2025 10:44 CDT HISTORY: [place] COMPARISON: No comparisons available. Technique: 2 views obtained. Findings: The lungs are clear, no effusion. No pneumothorax. Moderate cardiomegaly. Mediastinal and hilar contours are within normal limits. Bony thorax no acute abnormality. Impression: No acute cardiopulmonary abnormality. Reviewed, dictated and finalized at location A. Impression: No acute cardiopulmonary abnormality.
--- OUTSIDE RECORDS SUMMARY | 2025-06-24 11:28 | XMS_ITS | Clinical Summary ---
Author Organization [facility] Address [address] [place] [address] Care Team Providers Care Web Press Jogger Name Role Phone Ajit Blackwood MD Primary Care Provider [phone] Source Comments [facility],non-owned Affiliates and Associated Physician Practices is amultiple site organization consisting of ambulatory clinics and hospital sitesin [place], [place], [place] and [place]. This disclosure is being madepursuant to the Care Everywhere program and may not contain all information available regarding this patient. Last updated 18.[facility] Immunizations Immunization Administration Dates Next Due INFLUENZA VACCINE, HIGH-DOSE , QUADR. 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 Gender Identity Not on file Sexual Orientation Not on file Plan of Treatment Health Maintenance Due Date Last Done Comments BONE DENSITY TESTING 1940 DTAP/TDAP/TD VACCINES (1 - Tdap) 1960 PNEUMOCOCCAL VACCINE 50+ (1 of 1 - PCV) 1991 ZOSTER VACCINE (1 of 2) 1991 Respiratory Syncytial Virus (RSV) Vaccine Pt: or over 60 yrs (1 - 1-dose 75+ series) 2016 DEPRESSION SCREENING 10/01/2024 COVID-19 VACCINE (1 - 2023-2 5 season) 2025 INFLUENZA VACCINE (#1) 2025 7, 08/08/2016 HEPATITIS [...] patient's age to complete this topic Insurance [facility] MANAGED MEDICARE ADV Care Teams Web Press Jogger Relationship Specialty Start Date End Date Ajit Blackwood MD [address] [place] [address] PCP - General Family Medicine 08/08/16
== END 2025-06-24 10:34 | disposition home or self-care (01) ==
PROVIDERS: PCP Family Medicine; Visit Provider Internal Medicine Cardiovascular Disease
DX: R06.09 Other forms of dyspnea (principal)
CPT/HCPCS: 71046

== ENCOUNTER 2025-07-06 13:27 | Outpatient (CLI) | payer MEDICARE, SELFPAY ==
--- NOTE | ~2025-07-06 | US_ITS ---
EXAMINATION: US arterial duplex LE RT DATE: 07/06/2025 14:09 INDICATION: Right groin pain post recent cardiac ablation. TECHNIQUE: Multiple grayscale and Doppler ultrasound images of the arteries at the right groin were obtained. COMPARISON: None FINDINGS: Triphasic waveforms at the right external iliac, common femoral and profunda femoral arteries and biphasic waveforms at the right superficial femoral artery, each with normal brisk systolic upstrokes as well as relatively laminar flow on spectral Doppler. No pseudoaneurysm or hematoma. A few normal-sized right inguinal lymph nodes with no evident pathologically enlarged lymphadenopathy. IMPRESSION: 1. Unremarkable ultrasound of the arteries at the right groin with no evident hematoma or pseudoaneurysm. Reviewed, dictated and finalized at location A. IMPRESSION: 1. Unremarkable ultrasound of the arteries at the right groin with no evident h ematoma or pseudoaneurysm.
--- OUTSIDE RECORDS SUMMARY | 2025-07-06 14:27 | XMS_ITS | Clinical Summary ---
Author Organization [facility] Address [address] [place] [address] Care Team Providers Care Sailmaker Name Role Phone Ajit Blackwood MD Primary Care Provider [phone] Source Comments [facility],non-owned Affiliates and Associated Physician Practices is amultiple site organization consisting of ambulatory clinics and hospital sitesin [place], [place], [place] and [place]. This disclosure is being madepursuant to the Care Everywhere program and may not contain all information available regarding this patient. Last updated 18.[facility] Immunizations Immunization Administration Dates Next Due INFLUENZA VACCINE, HIGH-DOSE , QUADR. 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
--- OUTSIDE RECORDS SUMMARY | 2025-07-06 14:27 | XMS_ITS | Clinical Summary ---
Author Organization [facility] Address [address] [place] [address] Care Team Providers Care Naval Inspector Name Role Phone William Márquez DO Unavailable Ajit Blackwood MD Primary Care Provider [phone] Allergies Active Allergy Reactions Criticality Noted Date Comments Ciprofloxacin Unknown 02/26/2025 Sulfa Antibiotics Unknown 02/26/2025 Medications amLODIPine (NORVASC) 5 MG tablet Take 1 tablet (5 mg total) by mouth daily. 03/20/2025 Active amiodarone (PACERONE) 200 MG tablet Take 1 tablet (200 mg total) by mouth daily. 30 tablet 5 05/04/2025 Active Active Problems Problem Noted Date Diagnosed Date PVC's (premature ventricular contractions) Dyslipidemia Essential (primary) hypertension Palpitation Encounters Date Type Department Care Team Description 07/01/2025 10:45 AM CDT Telephone [facility] [address] [id number] Sherrell Waldron PA Holter Monitor 05/27/2025 Telephone [facility], [address] [address] Peri aJquez MD Information ([facility] Card[facility], Dr William Márquez) 05/11/2025 Orders Only [facility], [address] [address] Peri Jaquez MD 05/07/2025 [facility] [address] [place] [address] Peri Jaquez MD Schedule Procedure 05/05/2025 Results Follow-Up [facility] [address] [place] [address] Masha Garcia RN THYROXINE, FREE (FT4), HEPATIC FUNCTION PANEL 05/05/2025 Abstract [facility] [address] [place] [address] Cristino Solis MA 05/04/2025 12:15 PM CDT [facility] [address] [place] [address] Sherrell Waldron PA Follow Up (PVC abl) 05/04/2025 Travel from Last 3 Months Immunizations Immunization [...] on file Legal Sex Female 10:46 AM MANAGER HOME IMPROVEMENT Gender Identity Not on file Sexual Orientation [...] Care Team (Late st Contact Info) Description 08/11/2025 11:15 AM MANAGER HOME IMPROVEMENT Office Visit [facility] [address] [place] [address] Sherrell Waldron PA [address] [facility] [address] [place] [address] 08/19/2025 12:00 PM MANAGER HOME IMPROVEMENT Appointment [facility] Inside [place] [address] [place] [address] Peri Jaquez MD [facility]. [address] [place] [address] Health Maintenance Due Date Last Done Comments DTaP, Tdap and Td Vaccines (1 - Tdap) 1960 Annual Medicare Wellness Visit 2006 Dexa Scan (General) 2006 RSV Immunization or 60+ Years (1 - 1-dose 75+ series) 2016 Pneumococcal Vaccine: 50+ Years (2 of 2 - PPSV23) 07/28/2020 07/28/2019 COVID-19 Vaccine ( season) 2025 06/16/2024, 08/01/2023, 05/26/2022, Additional history exists Influenza Adult (#1) 2025 06/16/2024, 08/01/2023, 07/13/2022, Additional history exists Zoster Vaccines Completed 09/26/2019, [...] Routine 05/04/2025 THYROXINE, FREE (FT4) Routine 05/04/2025 from Last 3 Months Results * ELECTROCARDIOGRAM (05/04/2025 12:24 PM CDT) 05/04/2025 12:2 4 PM CDT Narrative JENNA GARCIA - 05/04/2025 9:07 PM CDT [facility] Test Date: 2025-05-04 Pat Name: [facility] Department: 112 Room: Gender: Female Catering Barista: : 1940 Requested By: PERI JAQUEZ Order Number: [id number] Reading MD: Peri Jaquez Measurements Intervals [place] Rate: 79 P: 55 NJ: 162 QRS: 4 QRSD: 75 T: 66 QT: 375 QTc: 430 Interpretive Statements SINUS RHYTHM WITH FREQUENT VENTRICULAR PREMATURE COMPLEXES POSSIBLE LEFT ATRIAL ENLARGEMENT NONSPECIFIC ST & T-WAVE ABNORMALITY ABNORMAL RHYTHM ECG Procedure Note Peri Jaquez MD - 05/04/2025 Jenna Garcia [facility] Test Date: 2025-05-04 Pat Name: LOREN [facility]OSS Department: 112 Room: Gender: Female Catering Barista: : 1940 Requested By: PERI JAQUEZ Order Number: [id number] Reading MD: Peri Jaquez Measurements Intervals [place] Rate: 79 P: 55 NJ: 162 QRS: 4 QRSD: 75 T: 66 QT: 375 QTc: 430 Interpretive Statements SINUS RHYTHM WITH FREQUENT VENTRICULAR PREMATURE COMPLEXES POSSIBLE LEFT ATRIAL ENLARGEMENT NONSPECIFIC ST & T-WAVE ABNORMALITY ABNORMAL RHYTHM ECG us Peri Jaquez MD PROCEDURES-ORDERABLE NO PATTI RGE Final Result [facility] * TSH (OUTSIDE LAB) (05/04/2025) TSH 1.180 05/04/2025 Default History Genericprovider LAB-OUTSIDE/ABST RACTED Final Result * HEPATIC FUNCTION PANEL (05/04/2025) ALBUMIN S/P/B 4.7 3.5 - 5.0 ALKALINE PHOSPHATASE S/P/B 69 ALT 11 AST 21 BILIRUBIN DIRECT S/P/B 0.19 BILIRUBIN TOTAL S/P/B 0.6 TOTAL PROTEIN S/P/B 6.6 05/04/2025 us Default History Genericprovider LABORATORY Final Result * THYROXINE, FREE (FT4) (05/04/2025) FREE T4 1.50 05/04/2025 Default History Genericprovider LABORATORY Final Result from Last 3 Months Insurance [facility] MEDICARE Advance Directives * Full Code (Latest Code Status on File) Date Activated Date Inactivated Comments 03/18/2025 6:20 PM 03/18/2025 8:58 PM Care Teams Naval Inspector Relationship Specialty Start Date End Date Ajit Blackwood MD [address] [place] [address] PCP - General FAMILY PRACTICE 01/05/25 William Márquez DO [address] [place] [address] CARDIOLOGY 01/02/25
--- OUTSIDE RECORDS SUMMARY | 2025-07-06 14:27 | XMS_ITS | Encounter Summary ---
Author Organization [facility] Address [address] [place] [address] Care Team Providers Care Shotgun Shell Assembly Machine Adjuster Name Role Phone William Márquez DO Unavailable Ajit Blackwood MD Primary Care Provider [phone] Encounter Details Date Type Department Care Team (Late st Contact Info) Description 05/05/2025 Abstract [place] [facility] [address] [place] [address] Cristino Solis MA Social History Tobacco Use Types Packs/Day Years Used Date Smoking Tobacco: Never Smokeless Tobacco: Never Alcohol Use Standard Drinks/Week Comments Not Currently 0 (1 standard drink = 0.6 oz pur e alcohol) Comments No Sex and Gender Information Value Date Recorded Sex Assigned at Not on file Legal Sex Female 10:46 AM 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 [address] [place] [address] documented as of this encounter Procedures Procedure Name Priority Date/Time Associated Diagnosis Comments TSH (OUTSIDE LAB) Routine 05/04/2025 HEPATIC FUNCTION PANEL Routine 05/04/2025 THYROXINE, FREE (FT4) Routine 05/04/2025 documented in this encounter Results * HEPATIC FUNCTION PANEL (05/04/2025) ALBUMIN S/P/B [...] on filedocumented in this encounter Care Teams Shotgun Shell Assembly Machine Adjuster Relationship Specialty Start Date End Date Ajit Blackwood MD [address] [place] [address] PCP - General FAMILY PRACTICE 01/05/25 William Márquez DO [address] [place] [address] CARDIOLOGY 01/02/25 documented as of this encounter
== END 2025-07-06 13:28 | disposition home or self-care (01) ==
PROVIDERS: PCP Family Medicine; Visit Provider Internal Medicine Cardiovascular Disease
DX: R10.31 Right lower quadrant pain (principal); I73.9 Peripheral vascular disease, unspecified
CPT/HCPCS: 93926

== ENCOUNTER 2025-07-22 11:46 | Outpatient (CLI) | payer MEDICARE, SELFPAY ==
[2025-07-22 12:09] LABS: Hematocrit 40.2 % (37.0-47.0); Hemoglobin 12.8 g/dL (12.0-15.0); Immature Granulocyte Percent A 0.5 % (0-0.5); Lymphocytes Absolute Auto 1.27 K/mm3 (0.9-3.2); Mean Corpuscular HGB Conc 31.8 g/dl (32-36); Mean Corpuscular Hemoglobin 29.3 pg (26-34); Mean Corpuscular Volume 92.0 fl (80-100); Nucleated Red Blood Cells Absolute Auto 0.000 K/mm3 (0.0-0.012); Nucleated Red Blood Cells Perc 0.0 % (0.0-0.2); Platelet Count Result 290 k/mm3 (150-375); Red Blood Count 4.37 M/mm3 (4.2-5.4); White Blood Count 8.6 K/mm3 (4.5-10.0)
[2025-07-22 12:30] LABS: Alanine Aminotransferase 21 U/L (6-35); Albumin Level 4.6 g/dL (3.5-5.1); Alkaline Phosphatase 72 U/L (38-126); Anion Gap 9 mmol/L (4-12); Aspartate Amino Transferase 33 U/L (14-36); Bilirubin,Total 0.8 mg/dL (0.2-1.3); Blood Urea Nitrogen 21 mg/dL (7-17); Calcium 9.3 mg/dL (8.4-10.2); Carbon Dioxide 27 mmol/L (22-30); Chloride 102 mmol/L (98-107); Estimated Glomerular Filt Rate 38; Glucose 94 mg/dL (65-110); Potassium 4.4 mmol/L (3.4-5.0); Sodium 138 mmol/L (137-145); Total Protein 7.4 g/dL (6.3-8.2)
== END 2025-07-22 11:47 | disposition home or self-care (01) ==
LOC: ANHLAB 11:49
PROVIDERS: PCP Family Medicine; Visit Provider Internal Medicine Cardiovascular Disease
DX: Z01.810 Encounter for preprocedural cardiovascular examination (principal)
CPT/HCPCS: 36415; 80053; 85025